=== PATIENT | male | born 1965 | race Caucasian/White ===

== ENCOUNTER 2017-10-14 08:39 | Emergency (ER) | payer OTHER ==
[2017-10-14 08:54] VITALS: BP 136/83; PULSE 98; TEMP 98.6; BMI 36.2
--- NOTE | 2017-10-14 08:59 | PDOC ---
History of Present Illness - General Chief Complaint: Injury Stated Complaint: RT FOOT INJURY Time Seen by Provider: 10/14/17 08:40 History Source: Patient Exam Limitations: No Limitations - History of Present Illness Initial Comments: 10/14/17 08:55 52y/o M h/o lupus, hypercoagulable on coumadin, neuropathy but no known peripheral vascular disease p/w bleeding lesion to his R foot. Pt unclear on when he may have injured his foot 2/2 neuropathy. This morning friend noted some blood on the bathroom floor, so patient checked his foot and noted a blood blister. He has no pain, has not noted any swelling/redness/pus/fever/chills. The bleeding was self resolved, he presents for evaluation. unknown last tetanus. compliant with meds. no other complaints. Past History - Past Medical History Allergies/Adverse Reactions: Allergies Allergy/AdvReac Type Severity Reaction Status Date / Time No Known Allergies Allergy Verified 10/14/17 08:40 Home Medications: Ambulatory Orders Vitamin B Complex 1 each PO DAILY 01/13/14 Warfarin Na [Coumadin -] 2.5 mg PO ASDIR 10/14/17 Anemia: No Asthma: No Cancer: No Cardiac Disorders: No CVA: No COPD: No CHF: No Dementia: No Diabetes: No GI Disorders: Yes (gerd) Disorders: No HTN: Yes Hypercholesterolemia: No Liver Disease: No Seizures: No Thyroid Disease: No Other medical history: PE 1014,DVTS IN LEFT LEG, NEUROPATHY, LUPUS COAG - Surgical History Abdominal Surgery: Yes (hernia repair) Appendectomy: No Cardiac Surgery: No Cholecystectomy: No Lung Surgery: No Neurologic Surgery: No Orthopedic Surgery: Yes (KNEE SURGERY) - Immunization History Immunization Up to Date: (PT THINKS IN LAST 5 YEARS) - Suicide/Smoking/Psychosocial Hx Smoking Status: Yes Smoking History: Former smoker Have you smoked in the past 12 months: No Number of Cigarettes Smoked Daily: 0 If you are a former smoker, when did you quit?: SEVERAL YEARS 20+ Information on smoking cessation initiated: No Hx Alcohol Use: No (1-2 DRINKS ON WEEKEND) Drug/Substance Use Hx: No Substance Use Type: None Hx Substance Use Treatment: No Review of Systems - Review of Systems Constitutional: No: Chills, Fever Cardiac (ROS): No: Edema Musculoskeletal: No: Joint Pain Integumentary: Yes: See HPI. No: Rash Neurological: Yes: See HPI *Physical Exam - Vital Signs Last Vital Signs Temp Pulse Resp BP Pulse Ox 98.6 F 98 H 20 136/83 99 10/14/17 08:39 10/14/17 08:39 10/14/17 08:39 10/14/17 08:39 10/14/17 08:39 - Physical Exam Comments: 10/14/17 09:08 GENERAL: The patient is awake, alert, and fully oriented, in no acute distress. HEAD: Normal with no signs of trauma. EYES: Pupils equal, round and reactive to light, extraocular movements intact. EXTREMITIES: Normal range of motion, no edema. 2+ easily palpable distal pulses. NEUROLOGICAL: Normal speech. Chronically decreased sensation in the toes. PSYCH: Normal mood, normal affect. SKIN: clear except for R foot: 2cm subcutaneous hematoma over the plantar aspect of the foot at the distal 1st metatarsal. There is a small excoriation with dry blood but no active bleeding/discharge/pus. nontender, no visible or palpable foreign body. No swelling/erythema/warmth. No joint effusion. Moderate Sedation - Procedure Monitoring Vital Signs: Vital Signs Temp Pulse Resp BP Pulse Ox 98.6 F 98 H 20 136/83 99 10/14/17 08:39 10/14/17 08:39 10/14/17 08:39 10/14/17 08:39 10/14/17 08:39 ED Treatment Course - RADIOLOGY Radiology Studies Ordered: Category Date Time Status FOOT-RIGHT [RAD] Stat Radiology 10/14/17 08:49 Ordered Medical Decision Making - Medical Decision Making 10/14/17 09:10 52y/o M with neuropathy on coumadin p/w subcutaneous hematoma to R sole that bled briefly this morning. Unknown timeline, no evidence of infection, no active bleeding. local wound care: irrigated with betadine, bacitracin dressing applied will check r foot xray to r/o any foreign body no evidence of infection and the patient is not immunocompromised and has no evidence of or known PVD. Would avoid systemic abx at this time and promote local wound care with bacitracin. update tetanus if needed - checking with PMD office. 10/14/17 09:20 On my prelim review, there is no foreign body or evidence of deep tissue infection or bone injury. bacitracin gauze dressing applied. understands return criteria. *DC/Admit/Observation/Transfer Diagnosis at time of Disposition: Subcutaneous hematoma - Discharge Dispostion Disposition: HOME Condition at time of disposition: Stable - Referrals Referrals: Jcarlos Brown MD [Primary Care Provider] - - Patient Instructions Printed Discharge Instructions: DI for Contusion Additional Instructions: Activity as tolerated. Stay hydrated. Bacitracin dressing change to the wound twice daily until fully healed. Continue your medications as previously prescribed by your physician. You should follow up with your primary doctor as needed regarding today's emergency department visit. Return to the emergency department for any new or concerning symptoms, particularly redness or swelling, pus or pain, fever or chills, persistent bleeding. - Post Discharge Activity
[2017-10-14] MEDS ORDERED: DIPHTH,PERTUSS(ACELL),TET 0.5 ML DISP.SYRIN IM ONE (09:22)
== END 2017-10-14 09:26 | disposition home or self-care (01) ==
LOC: SUPCPDRO 08:39 → FER 08:39
PROC: 3E0234Z Introduction of Serum, Toxoid and Vaccine into Muscle, Percutaneous Approach (ICD-10-PCS; principal; 2017-10-14)
DX: T14.8XXA Other injury of unspecified body region, initial encounter (principal); X58.XXXA Exposure to other specified factors, initial encounter; Y93.9 Activity, unspecified; Y92.9 Unspecified place or not applicable; Z79.01 Long term (current) use of anticoagulants; I73.9 Peripheral vascular disease, unspecified; K21.9 Gastro-esophageal reflux disease without esophagitis; I10 Essential (primary) hypertension; Z86.711 Personal history of pulmonary embolism; Z87.891 Personal history of nicotine dependence
CPT/HCPCS: 73630-TC-RT-FY; 90471; 90715; 99282-25

== ENCOUNTER 2018-01-19 08:34 | Emergency (ER) | payer OTHER ==
[2018-01-19 08:40] VITALS: BP 119/78; PULSE 101; TEMP 98.4; BMI 34.7
--- NOTE | 2018-01-19 09:33 | PDOC ---
History of Present Illness - General Chief Complaint: Wound Stated Complaint: BLEEDING TO SURGICAL SITE Time Seen by Provider: 01/19/18 08:44 - History of Present Illness Initial Comments: 01/19/18 09:47 Chief complaint: Bleeding from surgical site right hip History of present illness: Patient noted small amount of blood on wound dressing this morning. Site of a muscle biopsy right hip 2 weeks ago. No recent swelling or pain. Review of systems: Patient with chronic numbness tingling and weakness of the lower extremities thought to be due to peripheral neuropathy secondary to antiphospholipid syndrome. As noted above, no increased swelling or pain at the biopsy site. No lightheadedness, dizziness, orthostatic symptoms, chest pain, shortness of breath, abdominal pain, nausea, vomiting, diarrhea. Remainder systems reviewed and found to be negative Past medical history: Pulmonary embolus, approximately 2 years ago, maintained on warfarin. Recently transitioned to Lovenox for his biopsy, restarted on warfarin 5 days ago. INR several days ago was 1.9. Antiphospholipid syndrome. Peripheral neuropathy. Social/family history reviewed and noncontributory Physical exam: Alert and oriented well-developed well-nourished no acute distress cheerful and cooperative Afebrile, vital signs normal including orthostatic blood pressure and pulse. HEENT clear Neck supple without bruit mass or nodes Chest clear CV regular without murmur or gallop Abdomen benign Neurological reveals decreased sensation in both lower extremities, symmetric. Pulses are full, however, and feet are warm Extremities: There is a 6 cm incision at the site of a muscle biopsy lateral right hip. There is a small amount of white blood on the dressing. Upon removal of the dressing, there is slight dehiscence of the proximal edge of the wound with an underlying hematoma approximately 3 cm in diameter. There is no fluctuance. There is no bleeding with gentle pressure. Impression: Hematoma, small amount of bleeding, hemodynamically insignificant Plan: Wound was cleaned with normal saline, bacitracin was applied, and a pressure dressing was installed. Bleeding seemed to be controlled. Patient will follow-up with his primary physician or return to the ER if bleeding becomes more severe. Past History - Past Medical History Allergies/Adverse Reactions: Allergies Allergy/AdvReac Type Severity Reaction Status Date / Time No Known Allergies Allergy Verified 01/19/18 08:39 Home Medications: Ambulatory Orders Vitamin B Complex 1 each PO DAILY 01/13/14 Anemia: No Asthma: No Cancer: No Cardiac Disorders: No CVA: No COPD: No CHF: No Dementia: No Diabetes: No GI Disorders: Yes (gerd) Disorders: No HTN: Yes Hypercholesterolemia: No Liver Disease: No Seizures: No Thyroid Disease: No Other medical history: LUPUS - Surgical History Abdominal Surgery: Yes (hernia repair) Appendectomy: No Cardiac Surgery: No Cholecystectomy: No Lung Surgery: No Neurologic Surgery: No Orthopedic Surgery: Yes (KNEE SURGERY) - Immunization History Immunization Up to Date: (PT THINKS IN LAST 5 YEARS) - Suicide/Smoking/Psychosocial Hx Smoking Status: Yes Smoking History: Never smoked Have you smoked in the past 12 months: No Number of Cigarettes Smoked Daily: 0 If you are a former smoker, when did you quit?: SEVERAL YEARS 20+ Hx Alcohol Use: No (1-2 DRINKS ON WEEKEND) Drug/Substance Use Hx: No Substance Use Type: None Hx Substance Use Treatment: No *Physical Exam - Vital Signs Last Vital Signs Temp Pulse Resp BP Pulse Ox 98.4 F 101 H 18 119/78 96 01/19/18 08:36 01/19/18 08:36 01/19/18 08:36 01/19/18 08:36 01/19/18 08:36 *DC/Admit/Observation/Transfer Diagnosis at time of Disposition: Subcutaneous hematoma - Discharge Dispostion Disposition: HOME Condition at time of disposition: Improved Decision to Admit order: No - Referrals - Patient Instructions Printed Discharge Instructions: DI for Hematoma (Bruise) Additional Instructions: Maintain pressure dressing for 48 hours. Return to ER if there is persistent bleeding. Otherwise follow-up with primary physician Dr. Brown as discussed. - Post Discharge Activity
== END 2018-01-19 09:41 | disposition home or self-care (01) ==
LOC: FER 08:34
DX: L76.32 Postprocedural hematoma of skin and subcutaneous tissue following other procedure (principal); I10 Essential (primary) hypertension; M32.9 Systemic lupus erythematosus, unspecified; K21.9 Gastro-esophageal reflux disease without esophagitis
CPT/HCPCS: 99282-25

== ENCOUNTER 2018-05-27 16:45 | Inpatient (IN) | payer OTHER ==
--- NOTE | 2018-05-27 17:02 | PDOC ---
Rapid Medical Evaluation Time Seen by Provider: 05/27/18 17:00 Medical Evaluation: Allergies Allergy/AdvReac Type Severity Reaction Status Date / Time No Known Allergies Allergy Verified 01/19/18 08:39 05/27/18 17:01 I have performed a brief in-person evaluation of this patient. The patient presents with a chief complaint of: progressive numbness to ble and bue Pertinent physical exam findings:decreased sensation to b/l hands and lower extremities I have ordered the following: labs The patient will proceed to the ED for further evaluation. Discharge Disposition - Diagnosis Numbness and tingling - Referrals - Patient Instructions - Post Discharge Activity
[2018-05-27] MEDS ORDERED: SODIUM CHLORIDE 1,000 ML IV STA (17:03)
[2018-05-27 17:05] VITALS: BMI 34.7
[2018-05-27 17:51] LABS: BASO % 1.1 % (0-2.0); EOS % 0.8 % (0-4.5); HEMATOCRIT 39.5 % (35.4-49); HEMOGLOBIN 13.8 GM/dL (11.7-16.9); LYMPH % 24.8 % (8-40); MCH 34.6 pg (25.7-33.7); MCHC 34.8 g/dl (32.0-35.9); MEAN CELL VOLUME 99.4 fl (80-96); MEAN PLT VOLUME 10.6 fl (7.5-11.1); MONO % 13.1 % (3.8-10.2); NEUT % 60.2 % (42.8-82.8); PLATELET COUNT 176 K/MM3 (134-434); RBC 3.98 M/mm3 (4.00-5.60); RDW 13.6 % (11.9-15.9); WHITE BLOOD COUNT 6.6 K/mm3 (4.0-10.0)
[2018-05-27 18:10] LABS: ALBUMIN 3.4 g/dl (3.4-5.0); ALK PHOS 77 U/L (45-117); ANION GAP 12 MMOL/L (8-16); BILIRUBIN,TOTAL 0.8 mg/dL (0.2-1); BLOOD UREA NITROGEN 23 mg/dL (7-18); CHLORIDE 96 mmol/L (98-107); CO2 28 mmol/L (21-32); GLUCOSE,RANDOM 92 mg/dL (74-106); SGOT/AST 33 U/L (15-37); SGPT/ALT 19 U/L (13-61); SODIUM 136 mmol/L (136-145); TOT PROT 6.2 g/dl (6.4-8.2)
--- NOTE | 2018-05-27 18:54 | CON.NEURO ---
Consult - History of Present Illness History of Present Illness: 53 M c/o b/l feet numbness x 4 yrs, posterior aspect right below knees. + Difficulty walking bc cannot feel his feet. +weakness. Denies back pain, BB incontinence Denies hx DM Hx Raynaulds ; fingers may tingle, and goes white when exposed to cold then bright red when warmed up +hx Lupus anti-coagulant, dx 2014; hx PE, on coumadin 5mg QD blood work (-) -s/p biopsy and LP -- no clear dx on pathology beyond axonal and demyelinating neuropathy -now unable towalk x 4-5 months , unable to control legs , weaker than prior Numbness worsen extended up to low back, feels hands getting numb as well difficulty feeling floor. No falls. Saw RHEUM, w/u P. Vit B12 supplements (B12 low on bloodwork). hx of LA+2012, repeat recent (-) low B12, Low vit D; lyme ssa, ssba , esr (-) to review , spoke to RHEUM /DR Miller (-) NICOLE essentially and told lupus AC may covert (-), no signs of lupus as of now PRIOR Results: Results: SPEP, , C ANCA , P ANCA , MAG, HU , ESR (-), SSA /SSB (-) AST elevated Labs: LP -NL protein BIOPSY SURAL- axonal and demyleinating neuropathy, no inflammation seen, muscle BIOPSY (-) EM04/13/18 severe large fiber neuropathy -subacute to chronic moderate severity chronic neuropathy, sensorimotor with axonal features; - Past Medical History Cardio/Vascular: Yes: HTN - Past Surgical History Past Surgical History: Yes: Vein Stripping/Ligation - Alcohol/Substance Use Hx Alcohol Use: No - Smoking History Smoking history: Former smoker Have you smoked in the past 12 months: No Aproximately how many cigarettes per day: 0 If you are a former smoker, when did you quit?: SEVERAL YEARS 20+ - Social History Usual Living Arrangement: Other (roomate) ADL: Independent Home Medications - Allergies Allergies/Adverse Reactions: Allergies Allergy/AdvReac Type Severity Reaction Status Date / Time No Known Allergies Allergy Verified 01/19/18 08:39 - Home Medications Home Medications: Ambulatory Orders Vitamin B Complex 1 each PO DAILY 01/13/14 Family Disease History - Family Disease History Family Disease History: Other: Mother (dvts in the past), Sister (lupus anticoagulant) Physical Exam-Neuro Vital Signs: Vital Signs Temperature 97.9 F 05/27/18 17:01 Pulse Rate 109 H 05/27/18 17:01 Respiratory Rate 17 05/27/18 17:01 Blood Pressure 98/62 05/27/18 17:01 O2 Sat by Pulse Oximetry (%) 100 05/27/18 17:01 Labs: CBC, BMP 05/27/18 17:34 05/27/18 17:34 - Neuro Exam Level Of Consciousness: Yes: Alert (Mental Status: Mood is appropriate. Immediate recall is intact. Short term memory is intact. 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 There is no evidence of expressive or receptive aphasia. 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 - INFLAMMATORY POLYNEUROPATHY, UNSPECIFIED (2) Abnormal gait Code(s): R26.9 - UNSPECIFIED ABNORMALITIES OF GAIT AND MOBILITY (3) Sensory ganglionopathy Code(s): G54.9 - NERVE ROOT AND PLEXUS DISORDER, UNSPECIFIED Assessment/Plan G61.9..........INFLAMMATORY POLYNEUROPATHY, UNSPECIFIED R20.2..........PARESTHESIA OF SKIN Plan: Inflammatory Polyneuropathy, Unspecified: ?Vasculitis mediated neuropathy, ie immune mediated neuropathy vs idiopathic vs ganglionopathy--+ profound LE sensory ataxia appears distal dependent and axonal /demyelinating less likely CIDP with NL CSFprotein Vasculitis labs re (-) thus far LP -NL protein, no clear inflam infiltrate reviewed nerve and muscle biopsy 01/10 no evidence of an inflam myopathy--based on biopsy MRI LSPINE-no sig pathology SJGROEN , paraneoplastic RIVERA ( anti-Hu, anti-Yo, anti-Ri, Anti-CV2, Anti- Ma2, (- ) CT CHEST ABD PELVIS (-) paraneoplastic RIVERA (-) given profound sensory ataxia would give trial of IVIG , for progressive idiopathic ganglionopathy then may consider immunomodulator perhaps methotrexate IVIG 2gm/kg over 5 days total dose (.4gm/kg daily dose) , check IGA level, ESR, YAJAIRA, RF, JER , B12 DR BEST
--- NOTE | 2018-05-27 19:08 | PDOC ---
History of Present Illness - General History Source: Patient Exam Limitations: No Limitations - History of Present Illness Initial Comments: 05/27/18 19:24 The patient is a 53 year old male with a signficant past medical history of PE on coumadin and Lupus diagnosed in 2014 presenting with bilateral feet numbness , weakness, and difficulty walking. Patient denies recent falls. Patient was seen by Dr. Abbott, neurologist, today who recommended the patient come to the ER for a trial of IVIG for progressive idiopathic ganglionopathy. Allergies: NKDA Surgeries: None reported Social history: No reported alcohol, drug or cigarette use. PCP: Dr. Brown <Cally Elizabeth - Last Filed: 05/27/18 19:25> <Katina Villatoro - Last Filed: 05/27/18 20:51> - General Chief Complaint: Pain, Acute Stated Complaint: PCP SENT/TREATMENT Time Seen by Provider: 05/27/18 17:00 Past History <Cally Elizabeth - Last Filed: 05/27/18 19:25> - Past Medical History Anemia: No Asthma: No Cancer: No Cardiac Disorders: No CVA: No COPD: No CHF: No Dementia: No Diabetes: No GI Disorders: Yes (gerd) Disorders: No HTN: Yes Hypercholesterolemia: No Liver Disease: No Seizures: No Thyroid Disease: No - Surgical History Abdominal Surgery: Yes (hernia repair) Appendectomy: No Cardiac Surgery: No Cholecystectomy: No Lung Surgery: No Neurologic Surgery: No Orthopedic Surgery: Yes (KNEE SURGERY) - Immunization History Immunization Up to Date: Yes (PT THINKS IN LAST 5 YEARS) - Suicide/Smoking/Psychosocial Hx Smoking Status: Yes Smoking History: Former smoker Have you smoked in the past 12 months: No Number of Cigarettes Smoked Daily: 0 If you are a former smoker, when did you quit?: SEVERAL YEARS 20+ Information on smoking cessation initiated: No Hx Alcohol Use: No Drug/Substance Use Hx: No Substance Use Type: None Hx Substance Use Treatment: No <Katina Villatoro - Last Filed: 05/27/18 20:51> - Past Medical History Allergies/Adverse Reactions: Allergies Allergy/AdvReac Type Severity Reaction Status Date / Time No Known Allergies Allergy Verified 01/19/18 08:39 Home Medications: Ambulatory Orders Vitamin B Complex 1 each PO DAILY 08/21/14 Review of Systems - Review of Systems Able to Perform ROS?: Yes Comments:: 05/27/18 19:32 ADULT ROS GENERAL/CONSTITUTIONAL: No fever or chills. No weakness. HEAD, EYES, EARS, NOSE AND THROAT: No change in vision. No ear pain or discharge. No sore throat. GASTROINTESTINAL: No nausea, vomiting, diarrhea or constipation. GENITOURINARY: No dysuria, frequency, or change in urination. CARDIOVASCULAR: No chest pain or shortness of breath. RESPIRATORY: No cough, wheezing, or hemoptysis. MUSCULOSKELETAL: No joint or muscle swelling or pain. No neck or back pain. SKIN: No rash NEUROLOGIC: No headache, vertigo, loss of consciousness. (+) Weakness. (+) Bilateral lower extremities numbness. ENDOCRINE: No increased thirst. No abnormal weight change. HEMATOLOGIC/LYMPHATIC: No anemia, easy bleeding, or history of blood clots. ALLERGIC/IMMUNOLOGIC: No hives or skin allergy. <Cally Elizabeth - Last Filed: 05/27/18 19:25> *Physical Exam - Vital Signs Last Vital Signs Temp Pulse Resp BP Pulse Ox 97.9 F 109 H 17 98/62 100 05/27/18 17:01 05/27/18 17:01 05/27/18 17:01 05/27/18 17:01 05/27/18 17:01 - Physical Exam Comments: 05/27/18 19:33 ADULT PHYSICAL EXAM Constitutional: Awake, alert, oriented. No acute distress. Head: Normocephalic. Atraumatic Eyes: PERRL. EOMI. Conjunctivae are not pale. ENT: Mucous membranes are moist and intact. Posterior pharynx without exudates or erythema. Uvula midline. Neck: Supple. Full ROM. No lymphadenopathy. Cardiovascular: Regular rate. Regular rhythm. S1, S2 regular. Distal pulses are 2+ and symmetric. Pulmonary/Chest: No evidence of respiratory distress. Clear to auscultation bilaterally No wheezing, rales or rhonchi. Abdominal: Soft and non-distended. There is no tenderness. No rebound, guarding or rigidity. No organomegaly. No palpable masses. Good bowel sounds. Back: No CVA tenderness. Musculoskeletal: No edema. No cyanosis. No clubbing. Full range of motion in all extremities. Nocalf tenderness. Radial/pedal pulses are intact and 2+ bilaterally. (+) Muscle wasting of the lower and upper extremities. Skin: Skin is warm and dry. No petechiae. No purpura. Neurological: Alert and oriented to person, place, and time. Cranial nerves II -XII are grossly intact. Normal speech. Strength is grossly symmetric. No sensory deficits. Psychiatric: Good eye contact. Normal interaction, affect and behavior. <Cally Elizabeth - Last Filed: 05/27/18 19:25> - Vital Signs Last Vital Signs Temp Pulse Resp BP Pulse Ox 97.9 F 109 H 17 98/62 100 05/27/18 17:01 05/27/18 17:01 05/27/18 17:01 05/27/18 17:01 05/27/18 17:01 <Katina Villatoro - Last Filed: 05/27/18 20:51> Moderate Sedation - Procedure Monitoring Vital Signs: Procedure Monitoring Vital Signs Temperature 97.9 F 05/27/18 17:01 Pulse Rate 109 H 05/27/18 17:01 Respiratory Rate 17 05/27/18 17:01 Blood Pressure 98/62 05/27/18 17:01 O2 Sat by Pulse Oximetry (%) 100 05/27/18 17:01 <Cally Elizabeth - Last Filed: 05/27/18 19:25> - Procedure Monitoring Vital Signs: Procedure Monitoring Vital Signs Temperature 97.9 F 05/27/18 17:01 Pulse Rate 109 H 05/27/18 17:01 Respiratory Rate 17 05/27/18 17:01 Blood Pressure 98/62 05/27/18 17:01 O2 Sat by Pulse Oximetry (%) 100 05/27/18 17:01 <Katina Villatoro - Last Filed: 05/27/18 20:51> Heart Score/ECG Review - ECG Intrepretation Comment:: 05/27/18 20:51 sinus tach at 106, RBBB, no acute st/t wave findings <Katina Villatoro - Last Filed: 05/27/18 20:51> ED Treatment Course - LABORATORY CBC & Chemistry Diagram: 05/27/18 17:34 05/27/18 17:34 - ADDITIONAL ORDERS Additional order review: Laboratory Results 05/27/18 17:34 Sodium 136 Potassium 4.0 Chloride 96 L Carbon Dioxide 28 Anion Gap 12 BUN 23 H Creatinine 1.0 Creat Clearance w eGFR > 60 Random Glucose 92 Calcium 9.0 Total Bilirubin 0.8 AST 33 ALT 19 Alkaline Phosphatase 77 Total Protein 6.2 L Albumin 3.4 05/27/18 17:34 RBC 3.98 L MCV 99.4 H MCHC 34.8 RDW 13.6 D MPV 10.6 D Neutrophils % 60.2 Lymphocytes % 24.8 Monocytes % 13.1 H Eosinophils % 0.8 Basophils % 1.1 <Cally Elizabeth - Last Filed: 05/27/18 19:25> - LABORATORY CBC & Chemistry Diagram: 05/27/18 17:34 05/27/18 17:34 - ADDITIONAL ORDERS Additional order review: Laboratory Results 05/27/18 17:34 Sodium 136 Potassium 4.0 Chloride 96 L Carbon Dioxide 28 Anion Gap 12 BUN 23 H Creatinine 1.0 Creat Clearance w eGFR > 60 Random Glucose 92 Calcium 9.0 Total Bilirubin 0.8 AST 33 ALT 19 Alkaline Phosphatase 77 Total Protein 6.2 L Albumin 3.4 05/27/18 17:34 RBC 3.98 L MCV 99.4 H MCHC 34.8 RDW 13.6 D MPV 10.6 D Neutrophils % 60.2 Lymphocytes % 24.8 Monocytes % 13.1 H Eosinophils % 0.8 Basophils % 1.1 <Katina Villatoro - Last Filed: 05/27/18 20:51> Medical Decision Making - Medical Decision Making 05/27/18 20:47 a/p: 53yo male sent in by Dr. Abbott for admission for IVIG -hx of lupus -progressive neuropathy -no phillips -no cp -labs ordered from triage were reviewed and reviewed with the patient -will order neuro labs -will admit to [facility] - covers Dr. Brown 05/27/18 20:49 dx progressive idiopathic ganglianopathy case idscussed with Dr. Young from [facility] who accepts the patient under Dr. Altamirano <Katina Villatoro - Last Filed: 05/27/18 20:51> *DC/Admit/Observation/Transfer <Cally Elizabeth - Last Filed: 05/27/18 19:25> - Discharge Dispostion Decision to Admit order: Yes - Attestations Physician Attestion: 05/27/18 20:51 I, Dr. Katina Villatoro, DO, attest that this document has been prepared under my direction and personally reviewed by me in its entirety. I further attest, that it accurately reflects all work, treatment, procedures and medical decision -making performed by me. <Katina Villatoro - Last Filed: 05/27/18 20:51> Diagnosis at time of Disposition: Numbness and tingling, Progressive neurological disorder - Discharge Dispostion Condition at time of disposition: Fair - Referrals Referrals: Jcarlos Brown MD [Primary Care Provider] - - Patient Instructions - Post Discharge Activity
--- NOTE | 2018-05-27 19:40 | PN ---
Teaching Attending Note Name of Resident: Luis Jay ATTENDING PHYSICIAN STATEMENT I saw and evaluated the patient. I reviewed the resident's note and discussed the case with the resident. I agree with the resident's findings and plan as documented. SUBJECTIVE: Patient is a 53 year old man with a PMH of PE on coumadin and Lupus diagnosed in 2014 presenting with bilateral feet numbness, weakness, and difficulty walking. Patient denies recent falls. Patient was seen by Dr. Abbott, neurologist, today who recommended the patient come to the ER for a trial of IVIG for progressive idiopathic ganglionopathy. OBJECTIVE: Alert Vital Signs Period Temp Pulse Resp BP Sys/Chau Pulse Ox Last 24 Hr 97.9 F 109 17 98/62 100 HEENT: No Jaundice, eye redness or discharge, PERRLA, EOMI. Normocephalic, atraumatic. External ears are normal and hearing is grossly intact. No nasal discharge. Neck: Supple, nontender. No palpable adenopathy or thyromegaly. No JVD Chest: Good effort. Clear to auscultation and percussion. Heart: Regular. No S3, rub or murmur Abdomen: Not distended, soft, nontender and no HSM. No rebound or guarding. Normoactive bowel sounds. Ext: Peripheral pulses intact. No leg edema. Skin: Warm and dry. No petechiae, rash or ecchymosis. Neuro: Alert. Oriented x3. CN 2-12 grossly intact. Wheelchair use. Diminished sensation in lower extremities and DTR are symmetric. Home Medications Medication Instructions Recorded Vitamin B Complex 1 each PO DAILY 01/13/14 Abnormal Lab Results 05/27/18 05/27/18 17:34 17:34 RBC 3.98 L MCV 99.4 H MCH 34.6 H D Monocytes % 13.1 H Chloride 96 L BUN 23 H Total Protein 6.2 L ASSESSMENT AND PLAN: 1. Progressive idiopathic ganglionopathy - Patient getting IVIG under the guidance of the neurologist. Will hold his usual antihypertensive drugs in view of low BP. Got IV NS in the ER and will continue IV NS. 2. Obesity - Will provide patient all the necessary assistance, counseling and positive reinforcement to facilitate weight loss. Consult garment tag stringer. 3. DVT prophylaxis - On coumadin for PE. Monitor INR. 4. Advance directives - Full code
--- NOTE | 2018-05-27 20:05 | HP ---
CHIEF COMPLAINT: PCP: Dr. 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 Patient denies recent falls. Patient was seen by Dr. Abbott, neurologist, today who recommended the patient come to the ER for a trial of IVIG for progressive idiopathic ganglionopathy. Pt has been having sxs of b/l feet numbness x 4 yrs, but has been worsening over the past 4-5 mo. began w/ posterior aspect right below knees, now up to waist/lower back and in hands, unable to walk or control legs. Has been extensivrly w/u by rheum and neuro. Deneis fever , chills, cp, sob, abd pain, back pain, n/v/d, urinary sxs, incontinence ER course was notable for: (1) CXR, 1L NS (2) (3) Recent Travel: PAST MEDICAL HISTORY: echo 01/10 nl EF 60-65% RHEUM /DR Paul Abbott EM04/13/18 severe large fiber neuropathy -subacute to chronic moderate severity chronic neuropathy, sensorimotor with axonal features; LP -NL protein BIOPSY SURAL- axonal and demyleinating neuropathy, no inflammation seen, muscle BIOPSY (-) PAST SURGICAL HISTORY: R eye cataract surgery Vein Stripping/Ligation Social History: Smoking: quit 25 yr ago Alcohol: heavy but quit 1 yr ago Drugs: denies Family History: Mother (dvts in the past), Sister (lupus anticoagulant) Allergies No Known Allergies Allergy (Verified 01/19/18 08:39) HOME MEDICATIONS: coumadin 5mg ///, 2.5mg T// Home Medications Medication Instructions Recorded Vitamin B Complex 1 each PO DAILY 01/13/14 REVIEW OF SYSTEMS as per HPI PHYSICAL EXAMINATION Vital Signs - 24 hr 05/27/18 17:01 Temperature 97.9 F Pulse Rate 109 H Respiratory 17 Rate Blood Pressure 98/62 O2 Sat by Pulse 100 Oximetry (%) GENERAL: AOX3 NAD HEAD: NCAT EYES: Pupils equal, round and reactive to light, extraocular movements intact, sclera anicteric, conjunctiva clear. droopy R eye lid EARS, NOSE, THROAT: Ears normal, nares patent, oropharynx clear without exudates. Moist mucous membranes. NECK: Normal range of motion, supple without lymphadenopathy, JVD, or masses. LUNGS: CTAB HEART: RRR, normal S1 and S2 without murmur, rub or gallop. ABDOMEN: Soft, nontender, not distended, normoactive bowel sounds, no guarding, no rebound, no masses. MUSCULOSKELETAL: Normal range of motion at all joints. No bony deformities or tenderness. UPPER EXTREMITIES: 2+ pulses, warm, well-perfused. No cyanosis. No clubbing. No peripheral edema. LOWER EXTREMITIES: 2+ pulses, warm, well-perfused. No calf tenderness. No peripheral edema. NEUROLOGICAL: Cranial nerves II-XII intact. Normal speech. Diminished sensation in lower extremities b/l up to hips, as well as hands b/l up to wrists PSYCHIATRIC: Cooperative. Good eye contact. Appropriate mood and affect. SKIN: Warm, dry, normal turgor, no rashes or lesions noted, normal capillary refill. 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 Progressive idiopathic ganglionopathy - Patient getting IVIG under the guidance of the neurologist. Will hold his usual antihypertensive drugs in view of low BP. s/p 1L NS NS in the ER 100cc NS x 1 bag IVIG 2gm/kg over 5 days total dose (.4gm/kg daily dose) for progressive idiopathic ganglionopathy. then may consider immunomodulator perhaps methotrexate check IGA level, ESR, YAJAIRA, RF, JER , B12 HTN - low BP 98/67 hold home BP med lisinopril/HCTZ 20-12.5 DVT prophylaxis - On coumadin for PE. Monitor INR. coumadin 5mg ///, 2.5mg T// Full code Dispo med/surg Visit type - Emergency Visit Emergency Visit: Yes ED Registration Date: 05/27/18 Care time: The patient presented to the Emergency Department on the above date and was hospitalized for further evaluation of their emergent condition. - New Patient This patient is new to me today: Yes Date on this admission: 05/28/18 - Critical Care Critical Care patient: No
[2018-05-27 21:16] LABS: INR 1.34 (0.83-1.09); PROTHROMBIN TIME (PATIENT) 15.9 SEC (9.7-13.0)
[2018-05-27 21:19] LABS: ACTIVATED PTT 37.7 SECONDS (25.2-36.5)
[2018-05-27] MEDS ORDERED: IMMUNE GLOBULIN IVPB ONE (21:30)
[2018-05-27] MEDS ORDERED: WARFARIN NA 5 MG TABLET (UD) PO SCH (21:30)
[2018-05-27] MEDS ORDERED: SODIUM CHLORIDE 1,000 ML IV SCH (22:30)
[2018-05-27] MEDS ORDERED: WARFARIN NA 5 MG TABLET (UD) ONE (22:53)
[2018-05-28 06:25] LABS: EOS % 0.8 % (0-4.5); HEMATOCRIT 37.5 % (35.4-49); HEMOGLOBIN 12.2 GM/dL (11.7-16.9); LYMPH % 24.8 % (8-40); MCH 32.7 pg (25.7-33.7); MCHC 32.7 g/dl (32.0-35.9); MEAN PLT VOLUME 10.7 fl (7.5-11.1); MONO % 13.7 % (3.8-10.2); NEUT % 59.7 % (42.8-82.8); PLATELET COUNT 116 K/MM3 (134-434); RBC 3.75 M/mm3 (4.00-5.60); RDW 13.7 % (11.9-15.9); WHITE BLOOD COUNT 4.8 K/mm3 (4.0-10.0)
[2018-05-28 06:39] LABS: INR 1.33 (0.83-1.09); PROTHROMBIN TIME (PATIENT) 15.7 SEC (9.7-13.0)
[2018-05-28 06:41] LABS: ACTIVATED PTT 31.8 SECONDS (25.2-36.5)
[2018-05-28 07:04] LABS: ALK PHOS 66 U/L (45-117); ANION GAP 9 MMOL/L (8-16); BILIRUBIN,TOTAL 1.1 mg/dL (0.2-1); BLOOD UREA NITROGEN 23 mg/dL (7-18); CALCIUM 8.2 mg/dL (8.5-10.1); CHLORIDE 99 mmol/L (98-107); CO2 27 mmol/L (21-32); CREATININE 0.8 mg/dL (0.55-1.3); GLUCOSE,RANDOM 78 mg/dL (74-106); MAGNESIUM 1.5 mg/dL (1.8-2.4); PHOSPHOROUS 3.5 mg/dL (2.5-4.9); SGOT/AST 30 U/L (15-37); SGPT/ALT 16 U/L (13-61); SODIUM 135 mmol/L (136-145); TOT PROT 6.2 g/dl (6.4-8.2)
[2018-05-28] MEDS: VITAMIN B COMPLEX W/C COMBO TABLET (FP) PO SCH (10:00)
--- NOTE | 2018-05-28 11:14 | PN ---
Physical Exam: SUBJECTIVE: Patient seen and examined at bedside. No acute events overnight. OBJECTIVE: Vital Signs Temperature 97.7 F 05/28/18 10:00 Pulse Rate 95 H 05/28/18 10:00 Respiratory Rate 18 05/28/18 10:00 Blood Pressure 100/67 05/28/18 10:00 O2 Sat by Pulse Oximetry (%) 98 05/28/18 05:00 GENERAL: AOX3 NAD HEAD: AT/NC. NOLAN. EOMI. Dry mucus membranes. NECK: Normal ROM, supple, no LAD/JVD. LUNGS: CTA B/L. No wheezes noted. Symmetric chest rise. HEART: RRR, normal S1 and S2 without murmur, rub or gallop. ABDOMEN: Soft, NT/ND. +BS in all 4Q's. MUSCULOSKELETAL: Normal range of motion at all joints. No bony deformities or tenderness. UPPER EXTREMITIES: 2+ pulses, warm, well-perfused. No cyanosis. No clubbing. No peripheral edema. 5/5 muscle strength b/l. LOWER EXTREMITIES: 2+ pulses, warm, well-perfused. No calf tenderness. No peripheral edema. 4/5 R hip flexion. 5/5 muscle strength knee extension/flexion , plantarflexion/dorsiflexion. NEUROLOGICAL: Cranial nerves II-XII intact. Normal speech. Diminished sensation in lower extremities b/l up to hips, as well as hands b/l up to wrists. PSYCHIATRIC: Cooperative. Good eye contact. Appropriate mood and affect. SKIN: Warm, dry, normal turgor, no rashes or lesions noted, normal capillary refill. CBCD WBC 4.8 K/mm3 (4.0-10.0) 05/28/18 06:00 RBC 3.75 M/mm3 (4.00-5.60) L 05/28/18 06:00 Hgb 12.2 GM/dL (11.7-16.9) 05/28/18 06:00 Hct 37.5 % (35.4-49) 05/28/18 06:00 MCV 100.0 fl (80-96) H 05/28/18 06:00 MCHC 32.7 g/dl (32.0-35.9) 05/28/18 06:00 RDW 13.7 % (11.9-15.9) 05/28/18 06:00 Plt Count 116 K/MM3 (134-434) L D 05/28/18 06:00 MPV 10.7 fl (7.5-11.1) 05/28/18 06:00 CMP Sodium 135 mmol/L (136-145) L 05/28/18 06:00 Potassium 4.0 mmol/L (3.5-5.1) 05/28/18 06:00 Chloride 99 mmol/L (98-107) 05/28/18 06:00 Carbon Dioxide 27 mmol/L (21-32) 05/28/18 06:00 Anion Gap 9 MMOL/L (8-16) 05/28/18 06:00 BUN 23 mg/dL (7-18) H 05/28/18 06:00 Creatinine 0.8 mg/dL (0.55-1.3) 05/28/18 06:00 Creat Clearance w eGFR > 60 (>60) 05/28/18 06:00 Calcium 8.2 mg/dL (8.5-10.1) L 05/28/18 06:00 Total Bilirubin 1.1 mg/dL (0.2-1) H 05/28/18 06:00 AST 30 U/L (15-37) 05/28/18 06:00 ALT 16 U/L (13-61) 05/28/18 06:00 Alkaline Phosphatase 66 U/L (45-117) 05/28/18 06:00 Total Protein 6.2 g/dl (6.4-8.2) L 05/28/18 06:00 Albumin 3.0 g/dl (3.4-5.0) L 05/28/18 06:00 Active Medications Multivitamins (Total B With C -) 1 each PO DAILY [facility] Warfarin Sodium (Coumadin -) 5 mg PO MoWeFrSa@1800 [facility] Last Admin: 05/27/18 22:55 Dose: 5 mg Warfarin Sodium (Coumadin -) 2.5 mg PO SuTuTh@1800 [facility] ASSESSMENT/PLAN: 53 yo M w/ PMH of 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 #Progressive idiopathic ganglionopathy - Patient getting IVIG under the guidance of the neurologist. -Will hold his usual antihypertensive drugs in view of low BP. -Per neuro, IVIG 2gm/kg over 5 days total dose (.4gm/kg daily dose) for progressive idiopathic ganglionopathy. F/u neuro recs. -check IGA level, ESR, YAJAIRA, RF, JER , B12 -Vit B12 620 -TSH/Free T4 pending -Lipid profile -Folic acid 1 mg PO QD -Vitamin B Complex -PT consult #HTN - low BP 100/67. -hold home BP med: Lisinopril/HCTZ 20-12.5 #Hx of PE; INR 1.33 today. Cont to monitor INR. Cont home med: -Coumadin 5 mg M/W/F/Sa, 2.5 mg T/Th/S #Prophylaxis DVT- Coumadin 5mg M/W/F/Sa, 2.5mg T/TH/S for PE. #FEN -no IVf -recheck lytes in AM -sodium-controlled diet #Dispo -cont to monitor on med/surg -full code Visit type - Emergency Visit Emergency Visit: Yes ED Registration Date: 05/27/18 Care time: The patient presented to the Emergency Department on the above date and was hospitalized for further evaluation of their emergent condition. - New Patient This patient is new to me today: Yes Date on this admission: 05/28/18 - Critical Care Critical Care patient: No
[2018-05-28] MEDS: FOLIC ACID 1 MG TABLET (FP) PO SCH (14:12)
--- NOTE | 2018-05-28 16:19 | EKG ---
Test Reason : Blood Pressure : / mmHG Vent. Rate : 106 BPM Atrial Rate : 106 BPM P-R Int : 194 ms QRS Dur : 156 ms QT Int : 414 ms P-R-T Axes : 039 058 -07 degrees QTc Int : 549 ms SINUS TACHYCARDIA RIGHT BUNDLE BRANCH BLOCK T WAVE ABNORMALITY, CONSIDER INFEROLATERAL ISCHEMIA ABNORMAL ECG NO PREVIOUS ECGS AVAILABLE Confirmed by ANITA SLOAN MD ([id number]) on 05/28/2018 4:19:22 PM Referred By: Confirmed By:ANITA SLOAN MD
--- NOTE | 2018-05-28 17:03 | PN ---
Progress Note (short form) - Note Progress Note: 53 M c/o b/l feet numbness x 4 yrs, posterior aspect right below knees. + Difficulty walking bc cannot feel his feet. +weakness. Denies back pain, BB incontinence Denies hx DM Hx Raynaulds ; fingers may tingle, and goes white when exposed to cold then bright red when warmed up +hx Lupus anti-coagulant, dx 2014; hx PE, on coumadin 5mg QD blood work (-) -s/p biopsy and LP -- no clear dx on pathology beyond axonal and demyelinating neuropathy -now unable towalk x 4-5 months , unable to control legs , weaker than prior Numbness worsen extended up to low back, feels hands getting numb as well difficulty feeling floor. No falls. Saw RHEUM, w/u P. Vit B12 supplements (B12 low on bloodwork). hx of LA+2012, repeat recent (-) low B12, Low vit D; lyme ssa, ssba , esr (-) to review , spoke to [facility]HE[facility] /DR Miller (-) NICOLE essentially and told lupus AC may covert (-), no signs of lupus as of now FU : s/p day #1 IVIG no new issues tolerated OK PRIOR Results: Results: SPEP, , C ANCA , P ANCA , MAG, HU , ESR (-), SSA /SSB (-) AST elevated Labs: LP -NL protein BIOPSY SURAL- axonal and demyleinating neuropathy, no inflammation seen, muscle BIOPSY (-) EM04/13/18 severe large fiber neuropathy -subacute to chronic moderate severity chronic neuropathy, sensorimotor with axonal features; - Past Medical History Cardio/Vascular: Yes: HTN - Past Surgical History Past Surgical History: Yes: Vein Stripping/Ligation - Alcohol/Substance Use Hx Alcohol Use: No - Smoking History Smoking history: Former smoker Have you smoked in the past 12 months: No Aproximately how many cigarettes per day: 0 If you are a former smoker, when did you quit?: SEVERAL YEARS 20+ - Social History Usual Living Arrangement: Other (roomate) ADL: Independent Home Medications - Allergies Allergies/Adverse Reactions: Allergies Allergy/AdvReac Type Severity Reaction Status Date / Time No Known Allergies Allergy Verified 01/19/18 08:39 - Home Medications Home Medications: Ambulatory Orders Vitamin B Complex 1 each PO DAILY 01/13/14 Family Disease History - Family Disease History Family Disease History: Other: Mother (dvts in the past), Sister (lupus anticoagulant) Physical Exam-Neuro Vital Signs: Vital Signs Temperature 97.8 F 05/28/18 15:27 Pulse Rate 96 H 05/28/18 15:27 Respiratory Rate 20 05/28/18 15:27 Blood Pressure 110/68 05/28/18 15:27 O2 Sat by Pulse Oximetry (%) 97 05/28/18 14:51 Labs: CBC, BMP 05/27/18 17:34 05/27/18 17:34 - Neuro Exam Level Of Consciousness: Yes: Alert (Mental Status: Mood is appropriate. Immediate recall is intact. Short term memory is intact. 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 There is no evidence of expressive or receptive aphasia. 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 - INFLAMMATORY POLYNEUROPATHY, UNSPECIFIED (2) Abnormal gait Code(s): R26.9 - UNSPECIFIED ABNORMALITIES OF GAIT AND MOBILITY (3) Sensory ganglionopathy Code(s): G54.9 - NERVE ROOT AND PLEXUS DISORDER, UNSPECIFIED Assessment/Plan G61.9..........INFLAMMATORY POLYNEUROPATHY, UNSPECIFIED R20.2..........PARESTHESIA OF SKIN Plan: Inflammatory Polyneuropathy, Unspecified: ?Vasculitis mediated neuropathy, ie immune mediated neuropathy vs idiopathic vs ganglionopathy--+ profound LE sensory ataxia appears distal dependent and axonal /demyelinating less likely CIDP with NL CSFprotein Vasculitis labs re (-) thus far LP -NL protein, no clear inflam infiltrate reviewed nerve and muscle biopsy 01/10 no evidence of an inflam myopathy--based on biopsy MRI LSPINE-no sig pathology SJGROEN , paraneoplastic RIVERA ( anti-Hu, anti-Yo, anti-Ri, Anti-CV2, Anti- Ma2, (- ) CT CHEST ABD PELVIS (-) paraneoplastic RIVERA (-) given profound sensory ataxia would give trial of IVIG , for progressive idiopathic ganglionopathy then may consider immunomodulator perhaps methotrexate IVIG 2gm/kg over 5 days total dose (.4gm/kg daily dose) , day 1/5 hep SQ, rehab DR BEST Problem List - Problems (1) Inflammatory neuropathy Code(s): G61.9 - INFLAMMATORY POLYNEUROPATHY, UNSPECIFIED (2) Abnormal gait Code(s): R26.9 - UNSPECIFIED ABNORMALITIES OF GAIT AND MOBILITY (3) Sensory ganglionopathy Code(s): G54.9 - NERVE ROOT AND PLEXUS DISORDER, UNSPECIFIED
[2018-05-28] MEDS: IMMUNE GLOBULIN IVPB ONE ×2 (17:41→20:40)
[2018-05-28] MEDS ORDERED: WARFARIN NA 2.5 MG TABLET (FP) PO SCH (18:00)
--- NOTE | 2018-05-28 19:42 | PN ---
Teaching Attending Note Name of Resident: Fely Nicole ATTENDING PHYSICIAN STATEMENT I saw and evaluated the patient. I reviewed the resident's note and discussed the case with the resident. I agree with the resident's findings and plan as documented. SUBJECTIVE: Patient is comfortable with no acute distress. c/o of having generalized numbness of his fingers and lower extremities and feels weak now that unable to ambulate. OBJECTIVE: Vital Signs Temperature 98.0 F 05/28/18 19:00 Pulse Rate 95 H 05/28/18 19:00 Respiratory Rate 18 05/28/18 19:00 Blood Pressure 112/64 05/28/18 19:00 O2 Sat by Pulse Oximetry (%) 97 05/28/18 14:51 GENERAL: AOX3 NAD HEAD: AT/NC. NOLAN. EOMI. Dry mucus membranes. NECK: Normal ROM, supple, no LAD/JVD. LUNGS: CTA B/L. No wheezes noted. Symmetric chest rise. HEART: RRR, normal S1 and S2 without murmur, rub or gallop. ABDOMEN: Soft, NT/ND. positive for BS MUSCULOSKELETAL: Normal range of motion at all joints. No bony deformities or tenderness. EXTREMITIES: 2+ pulses, warm, No calf tenderness. No edema. 4/5 R hip flexion. 5 /5 muscle strength knee extension/flexion, plantarflexion/dorsiflexion. NEUROLOGICAL: Cranial nerves II-XII intact. Normal speech. Diminished sensation in lower extremities b/l up to hips, as well as hands b/l up to wrists. PSYCHIATRIC: Cooperative. Good eye contact. Appropriate mood and affect. SKIN: Warm, dry, normal turgor, no rashes or lesions noted, normal capillary refill. CBCD WBC 4.8 K/mm3 (4.0-10.0) 05/28/18 06:00 RBC 3.75 M/mm3 (4.00-5.60) L 05/28/18 06:00 Hgb 12.2 GM/dL (11.7-16.9) 05/28/18 06:00 Hct 37.5 % (35.4-49) 05/28/18 06:00 MCV 100.0 fl (80-96) H 05/28/18 06:00 MCHC 32.7 g/dl (32.0-35.9) 05/28/18 06:00 RDW 13.7 % (11.9-15.9) 05/28/18 06:00 Plt Count 116 K/MM3 (134-434) L D 05/28/18 06:00 MPV 10.7 fl (7.5-11.1) 05/28/18 06:00 CMP Sodium 135 mmol/L (136-145) L 05/28/18 06:00 Potassium 4.0 mmol/L (3.5-5.1) 05/28/18 06:00 Chloride 99 mmol/L (98-107) 05/28/18 06:00 Carbon Dioxide 27 mmol/L (21-32) 05/28/18 06:00 Anion Gap 9 MMOL/L (8-16) 05/28/18 06:00 BUN 23 mg/dL (7-18) H 05/28/18 06:00 Creatinine 0.8 mg/dL (0.55-1.3) 05/28/18 06:00 Creat Clearance w eGFR > 60 (>60) 05/28/18 06:00 Random Glucose 78 mg/dL (74-106) 05/28/18 06:00 Calcium 8.2 mg/dL (8.5-10.1) L 05/28/18 06:00 Total Bilirubin 1.1 mg/dL (0.2-1) H 05/28/18 06:00 AST 30 U/L (15-37) 05/28/18 06:00 ALT 16 U/L (13-61) 05/28/18 06:00 Alkaline Phosphatase 66 U/L (45-117) 05/28/18 06:00 Total Protein 6.2 g/dl (6.4-8.2) L 05/28/18 06:00 Albumin 3.0 g/dl (3.4-5.0) L 05/28/18 06:00 Current Medications Generic Name Dose Route Start Last Admin Trade Name Deonna PRN Reason Stop Dose Admin Folic Acid 1 mg 05/28/18 11:30 05/28/18 14:12 Folic Acid - PO 1 mg DAILY RADHA Administration Immune Globulin 50 gm in 500 mls @ 73 mls/hr 05/28/18 17:15 05/28/18 17:41 Gamunex-C IVPB 05/29/18 00:05 73 mls/hr ONCE ONE Administration Immune Globulin 50 gm in 500 mls @ 71.429 mls/hr 05/29/18 17:00 Gamunex-C IVPB 05/31/18 23:59 DAILY@1700 [facility] Multivitamins 1 each 05/28/18 10:00 05/28/18 10:00 Total B With C - PO 1 each DAILY RADHA Administration Warfarin Sodium 5 mg 05/27/18 21:30 05/27/18 22:55 Coumadin - PO 5 mg MoWeFrSa@1800 RADHA Administration Warfarin Sodium 2.5 mg 05/28/18 18:00 05/28/18 17:04 Coumadin - PO 2.5 mg SuTuTh@1800 [facility] Administration Home Medications Medication Instructions Recorded Vitamin B Complex 1 each PO DAILY 01/13/14 ASSESSMENT AND PLAN: Patient is a 53yo male with PMHx of b/l feet numbness x 4 yrs, PE due to lupus anticoagulant on Coumadin (2014) , 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 Denies back pain, has no urinary incontinence. He feels that he cannot feel the floor when he is walking. As per patient has seen a data processing specialist and other w/ u has been done in the office. # Inflammatory Polyneuropathy: day 1 of IVIG for progressive idiopathic ganglionopathy s/p LP NL protein, Bx of Sural: axonal and demyleinating neuropathy, no inflammation seen, muscle BIOPSY negative. MRI LSPINE: no sig pathology : need to r/o vasculitis , will check rpr on him, also folic acid on a low side will add 1mg daily. Further w/u as per . As per Dr. 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 IVIG 2gm/kg day #1/5 days total dose (.4gm/kg daily dose) , as per dr Rendon notes: Results: SPEP, , C ANCA , P ANCA , MAG, HU , ESR (-), SSA /SSB (-) AST elevated BIOPSY SURAL-axonal and demyleinating neuropathy, no inflammation seen, muscle BIOPSY negative EM04/13/18 severe large fiber neuropathy subacute to chronic moderate severity chronic neuropathy, sensorimotor with axonal features; inflammatory Polyneuropathy, Unspecified: possible Vasculitis mediated neuropathy, ie immune mediated neuropathy vs idiopathic vs ganglionopathy , positive for profound LE sensory ataxia appears distal dependent and axonal /demyelinating less likely CIDP with NL CSFprotein Vasculitis labs re (-) thus far LP -NL protein, no clear inflam infiltrate reviewed nerve and muscle biopsy 01/10 no evidence of an inflam myopathy--based on biopsy SJGROEN , paraneoplastic RIVERA ( anti-Hu, anti-Yo, anti-Ri, Anti-CV2, Anti- Ma2, (- ) CT CHEST ABD PELVIS (-) paraneoplastic RIVERA (-) Hep SQ,
[2018-05-29 04:15] LABS: IGA IMMUNOGLOBULIN 115 mg/dL (90-386)
[2018-05-29 06:53] LABS: HEMATOCRIT 35.6 % (35.4-49); HEMOGLOBIN 11.7 GM/dL (11.7-16.9); MCH 32.7 pg (25.7-33.7); MCHC 32.9 g/dl (32.0-35.9); MEAN CELL VOLUME 99.4 fl (80-96); MEAN PLT VOLUME 10.3 fl (7.5-11.1); PLATELET COUNT 91 K/MM3 (134-434); RBC 3.58 M/mm3 (4.00-5.60); RDW 13.8 % (11.9-15.9)
[2018-05-29 07:22] LABS: ANION GAP 8 MMOL/L (8-16); BLOOD UREA NITROGEN 24 mg/dL (7-18); CALCIUM 8.1 mg/dL (8.5-10.1); CHLORIDE 101 mmol/L (98-107); CO2 27 mmol/L (21-32); CREATININE 0.9 mg/dL (0.55-1.3); GLUCOSE,RANDOM 73 mg/dL (74-106); POTASSIUM 3.6 mmol/L (3.5-5.1); SODIUM 136 mmol/L (136-145)
[2018-05-29 07:23] LABS: CHOLESTEROL 162 mg/dL (50-200); HDL CHOLESTEROL 58 mg/dL (40-60); TRIGLYCERIDES 52 mg/dL (0-150)
[2018-05-29] MEDS: VITAMIN B COMPLEX W/C COMBO TABLET (FP) PO SCH (10:01)
[2018-05-29] MEDS: FOLIC ACID 1 MG TABLET (FP) PO SCH (10:01)
[2018-05-29] MEDS ORDERED: WARFARIN NA 5 MG TABLET (UD) PO SCH ×2 (10:33→10:45)
--- NOTE | 2018-05-29 10:42 | PN ---
Physical Exam: SUBJECTIVE: Patient seen and examined at bedside. No acute events overnight. Pt has no complaints. OBJECTIVE: Vital Signs Period Temp Pulse Resp BP Sys/Chau Pulse Ox Last 24 Hr 97.7 F-98.6 F 86-96 18-20 105-125/64-79 95-100 GENERAL: AOX3 NAD HEAD: AT/NC. NOLAN. EOMI. Dry mucus membranes. NECK: Normal ROM, supple, no LAD/JVD. LUNGS: CTA B/L. No wheezes noted. Symmetric chest rise. HEART: RRR, normal S1 and S2 without murmur, rub or gallop. ABDOMEN: Soft, NT/ND. +BS in all 4Q's. MUSCULOSKELETAL: Normal range of motion at all joints. No bony deformities or tenderness. UPPER EXTREMITIES: 2+ pulses, warm, well-perfused. No cyanosis. No clubbing. No peripheral edema. 5/5 muscle strength b/l. LOWER EXTREMITIES: 2+ pulses, warm, well-perfused. No calf tenderness. No peripheral edema. 4/5 R hip flexion. 5/5 muscle strength knee extension/flexion , plantarflexion/dorsiflexion. NEUROLOGICAL: Cranial nerves II-XII intact. Normal speech. Diminished sensation in lower extremities b/l up to hips, as well as hands b/l up to wrists. PSYCHIATRIC: Cooperative. Good eye contact. Appropriate mood and affect. SKIN: Warm, dry, normal turgor, no rashes or lesions noted, normal capillary refill. CBCD WBC 3.0 K/mm3 (4.0-10.0) L 05/29/18 05:15 RBC 3.58 M/mm3 (4.00-5.60) L 05/29/18 05:15 Hgb 11.7 GM/dL (11.7-16.9) 05/29/18 05:15 Hct 35.6 % (35.4-49) 05/29/18 05:15 MCV 99.4 fl (80-96) H 05/29/18 05:15 MCHC 32.9 g/dl (32.0-35.9) 05/29/18 05:15 RDW 13.8 % (11.9-15.9) 05/29/18 05:15 Plt Count 91 K/MM3 (134-434) L D 05/29/18 05:15 MPV 10.3 fl (7.5-11.1) 05/29/18 05:15 CMP Sodium 136 mmol/L (136-145) 05/29/18 05:15 Potassium 3.6 mmol/L (3.5-5.1) 05/29/18 05:15 Chloride 101 mmol/L (98-107) 05/29/18 05:15 Carbon Dioxide 27 mmol/L (21-32) 05/29/18 05:15 Anion Gap 8 MMOL/L (8-16) 05/29/18 05:15 BUN 24 mg/dL (7-18) H 05/29/18 05:15 Creatinine 0.9 mg/dL (0.55-1.3) 05/29/18 05:15 Creat Clearance w eGFR > 60 (>60) 05/29/18 05:15 Calcium 8.1 mg/dL (8.5-10.1) L 05/29/18 05:15 Total Bilirubin 1.1 mg/dL (0.2-1) H 05/28/18 06:00 AST 30 U/L (15-37) 05/28/18 06:00 ALT 16 U/L (13-61) 05/28/18 06:00 Alkaline Phosphatase 66 U/L (45-117) 05/28/18 06:00 Total Protein 6.2 g/dl (6.4-8.2) L 05/28/18 06:00 Albumin 3.0 g/dl (3.4-5.0) L 05/28/18 06:00 Active Medications Enoxaparin Sodium (Lovenox -) 120 mg SQ BID [facility] Folic Acid (Folic Acid -) 1 mg PO DAILY [facility] Last Admin: 05/29/18 10:01 Dose: 1 mg Immune Globulin (Gamunex-C) 50 gm in 500 mls @ 71.429 mls/hr IVPB DAILY@1700 [facility] Stop: 05/31/18 23:59 Multivitamins (Total B With C -) 1 each PO DAILY [facility] Last Admin: 05/29/18 10:01 Dose: 1 each Warfarin Sodium (Coumadin -) 7.5 mg PO DAILY [facility] ASSESSMENT/PLAN: 53 yo M w/ PMH of 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 #Progressive idiopathic ganglionopathy - Patient getting IVIG under the guidance of the neurologist. -Will hold his usual antihypertensive drugs in view of low BP -Per neuro, IVIG 2gm/kg over 5 days total dose (.4gm/kg daily dose; started ) for progressive idiopathic ganglionopathy. F/u neuro recs. -IgA 115, ESR 22, YAJAIRA pending, RF <10.0, JER -Vit B12 620 -TSH 3.68/Free T4 1.26 -TG 52, Chol 162, LDL 89, HDL 58 -Folic acid 1 mg PO QD, Vitamin B Complex -PT consult #HTN - low BP 100/67. -hold home BP med: Lisinopril/HCTZ 20-12.5 #Hx of PE; INR 1.33 today. Cont to monitor INR. -Increased dosage of Coumadin to 7.5 mg PO daily -Add Lovenox 120 mg BID -Will continue coverage with Lovenox until INR becomes therapeutic -recheck INR in AM #Prophylaxis DVT- Coumadin 7.5 mg PO QD, Lovenox 120 mg BID #FEN -no IVf -recheck lytes in AM -sodium-controlled diet #Dispo -cont to monitor on med/surg -full code Visit type - Emergency Visit Emergency Visit: Yes ED Registration Date: 05/27/18 Care time: The patient presented to the Emergency Department on the above date and was hospitalized for further evaluation of their emergent condition. - New Patient This patient is new to me today: No - Critical Care Critical Care patient: No
[2018-05-29 12:11] LABS: INR 1.61 (0.83-1.09); PROTHROMBIN TIME (PATIENT) 19.1 SEC (9.7-13.0)
[2018-05-29] MEDS: LACTOBACILLUS ACIDOPHILUS 1 TABLET PO SCH (12:59)
[2018-05-29] MEDS: ENOXAPARIN NA (PORCINE) 120 MG/0.8 ML DISP.SYRIN SQ SCH ×2 (13:00→21:11)
[2018-05-29] MEDS ORDERED: PT OWN MED DRAWER 7, Y5N ONE ×2 (13:19→21:01)
[2018-05-29] MEDS: IMMUNE GLOBULIN IVPB SCH ×2 (16:41→17:40)
[2018-05-29] MEDS: WARFARIN NA 7.5 MG TABLET (FP) PO SCH (17:05)
--- NOTE | 2018-05-29 18:25 | PN ---
Teaching Attending Note Name of Resident: Fely Nicole ATTENDING PHYSICIAN STATEMENT I saw and evaluated the patient. I reviewed the resident's note and discussed the case with the resident. I agree with the resident's findings and plan as documented. SUBJECTIVE: Patient has no new complain. No changes in his symptoms. OBJECTIVE: Vital Signs Temperature 98.2 F 05/29/18 13:49 Pulse Rate 90 05/29/18 13:49 Respiratory Rate 20 05/29/18 13:49 Blood Pressure 118/74 05/29/18 13:49 O2 Sat by Pulse Oximetry (%) 100 05/29/18 09:00 GENERAL: AOX3 NAD HEAD: AT/NC. NOLAN. EOMI. Dry mucus membranes. NECK: Normal ROM, supple, no LAD/JVD. LUNGS: CTA B/L. No wheezes noted. Symmetric chest rise. HEART: RRR, normal S1 and S2 without murmur, rub or gallop. ABDOMEN: Soft, NT/ND. positive for BS MUSCULOSKELETAL: Normal range of motion at all joints. No bony deformities or tenderness. EXTREMITIES: 2+ pulses, warm, No calf tenderness. No edema. 4/5 R hip flexion. 5 /5 muscle strength knee extension/flexion, plantarflexion/dorsiflexion. NEUROLOGICAL: Cranial nerves II-XII intact. Normal speech. Diminished sensation in lower extremities b/l up to hips, as well as hands b/l up to wrists. PSYCHIATRIC: Cooperative. Good eye contact. Appropriate mood and affect. SKIN: Warm, dry, normal turgor, no rashes or lesions noted, normal capillary refill. CBCD WBC 3.0 K/mm3 (4.0-10.0) L 05/29/18 05:15 RBC 3.58 M/mm3 (4.00-5.60) L 05/29/18 05:15 Hgb 11.7 GM/dL (11.7-16.9) 05/29/18 05:15 Hct 35.6 % (35.4-49) 05/29/18 05:15 MCV 99.4 fl (80-96) H 05/29/18 05:15 MCHC 32.9 g/dl (32.0-35.9) 05/29/18 05:15 RDW 13.8 % (11.9-15.9) 05/29/18 05:15 Plt Count 91 K/MM3 (134-434) L D 05/29/18 05:15 MPV 10.3 fl (7.5-11.1) 05/29/18 05:15 CMP Sodium 136 mmol/L (136-145) 05/29/18 05:15 Potassium 3.6 mmol/L (3.5-5.1) 05/29/18 05:15 Chloride 101 mmol/L (98-107) 05/29/18 05:15 Carbon Dioxide 27 mmol/L (21-32) 05/29/18 05:15 Anion Gap 8 MMOL/L (8-16) 05/29/18 05:15 BUN 24 mg/dL (7-18) H 05/29/18 05:15 Creatinine 0.9 mg/dL (0.55-1.3) 05/29/18 05:15 Creat Clearance w eGFR > 60 (>60) 05/29/18 05:15 Random Glucose 73 mg/dL (74-106) L 05/29/18 05:15 Calcium 8.1 mg/dL (8.5-10.1) L 05/29/18 05:15 Total Bilirubin 1.1 mg/dL (0.2-1) H 05/28/18 06:00 AST 30 U/L (15-37) 05/28/18 06:00 ALT 16 U/L (13-61) 05/28/18 06:00 Alkaline Phosphatase 66 U/L (45-117) 05/28/18 06:00 Total Protein 6.2 g/dl (6.4-8.2) L 05/28/18 06:00 Albumin 3.0 g/dl (3.4-5.0) L 05/28/18 06:00 Current Medications Generic Name Dose Route Start Last Admin Trade Name Freq PRN Reason Stop Dose Admin Enoxaparin Sodium 120 mg 05/29/18 11:15 05/29/18 13:00 Lovenox - SQ 120 mg BID [facility] Administration Folic Acid 1 mg 05/28/18 11:30 05/29/18 10:01 Folic Acid - PO 1 mg DAILY [facility] Administration Immune Globulin 50 gm in 500 mls @ 71.429 mls/hr 05/29/18 17:00 05/29/18 17: 40 Gamunex-C IVPB 05/31/18 23:59 71.429 mls/hr DAILY@1700 [facility] Administration Lactobacillus Acidophilus 1 tab 05/29/18 12:45 05/29/18 12:59 Bacid - PO 1 tab DAILY [facility] Administration Multivitamins 1 each 05/28/18 10:00 05/29/18 10:01 Total B With C - PO 1 each DAILY [facility] Administration Warfarin Sodium 7.5 mg 05/29/18 18:00 05/29/18 17:05 Coumadin - PO 7.5 mg DAILY@1800 [facility] Administration Home Medications Medication Instructions Recorded Vitamin B Complex 1 each PO DAILY 01/13/14 ASSESSMENT AND PLAN: Patient is a 53yo male with PMHx of b/l feet numbness x 4 yrs, PE due to lupus anticoagulant on Coumadin (2014) , 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 Denies back pain, has no urinary incontinence. He feels that he cannot feel the floor when he is walking. As per patient has seen a buckle sorter and other w/ u has been done in the office. # Inflammatory Polyneuropathy: day 2 of IVIG for progressive idiopathic ganglionopathy s/p LP NL protein, Bx of Sural: axonal and demyleinating neuropathy, no inflammation seen, muscle BIOPSY negative. MRI LSPINE: no sig pathology : need to r/o vasculitis , will check rpr on him, also folic acid on a low side will add 1mg daily. Further w/u as per . As per Dr. 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 IVIG 2gm/kg day #2/5 days total dose (.4gm/kg daily dose) , as per dr Rendon notes: Results: SPEP, , C ANCA , P ANCA , MAG, HU , ESR (-), SSA /SSB (-) AST elevated BIOPSY SURAL-axonal and demyleinating neuropathy, no inflammation seen, muscle BIOPSY negative EM04/13/18 severe large fiber neuropathy subacute to chronic moderate severity chronic neuropathy, sensorimotor with axonal features; inflammatory Polyneuropathy, Unspecified: possible Vasculitis mediated neuropathy, ie immune mediated neuropathy vs idiopathic vs ganglionopathy , positive for profound LE sensory ataxia appears distal dependent and axonal /demyelinating less likely CIDP with NL CSFprotein Vasculitis labs re (-) thus far LP -NL protein, no clear inflam infiltrate reviewed nerve and muscle biopsy 01/10 no evidence of an inflam myopathy--based on biopsy SJGROEN , paraneoplastic RIVERA ( anti-Hu, anti-Yo, anti-Ri, Anti-CV2, Anti- Ma2, (- ) CT CHEST ABD PELVIS (-) paraneoplastic RIVERA (-) Hep SQ,
[2018-05-30] MEDS ORDERED: PT OWN MED DRAWER 7, Y5N ONE ×2 (05:26→21:07)
[2018-05-30 08:25] LABS: HEMATOCRIT 35.2 % (35.4-49); HEMOGLOBIN 11.5 GM/dL (11.7-16.9); MCH 32.3 pg (25.7-33.7); MCHC 32.7 g/dl (32.0-35.9); MEAN CELL VOLUME 98.6 fl (80-96); MEAN PLT VOLUME 10.5 fl (7.5-11.1); PLATELET COUNT 89 K/MM3 (134-434); RBC 3.57 M/mm3 (4.00-5.60); RDW 13.6 % (11.9-15.9); WHITE BLOOD COUNT 2.4 K/mm3 (4.0-10.0)
[2018-05-30 08:31] LABS: INR 1.59 (0.83-1.09); PROTHROMBIN TIME (PATIENT) 18.9 SEC (9.7-13.0)
[2018-05-30] MEDS: FOLIC ACID 1 MG TABLET (FP) PO SCH (09:01)
[2018-05-30] MEDS: LACTOBACILLUS ACIDOPHILUS 1 TABLET PO SCH (09:01)
[2018-05-30] MEDS: VITAMIN B COMPLEX W/C COMBO TABLET (FP) PO SCH (09:01)
[2018-05-30] MEDS: ENOXAPARIN NA (PORCINE) 120 MG/0.8 ML DISP.SYRIN SQ SCH ×2 (09:02→21:21)
[2018-05-30 09:48] LABS: ANION GAP 8 MMOL/L (8-16); BLOOD UREA NITROGEN 17 mg/dL (7-18); CALCIUM 8.4 mg/dL (8.5-10.1); CHLORIDE 102 mmol/L (98-107); CO2 27 mmol/L (21-32); CREATININE 0.8 mg/dL (0.55-1.3); GLUCOSE,RANDOM 81 mg/dL (74-106); POTASSIUM 3.6 mmol/L (3.5-5.1); SODIUM 137 mmol/L (136-145)
--- NOTE | 2018-05-30 10:51 | PN ---
Progress Note (short form) - Note Progress Note: Vital Signs Temperature 98.4 F 05/30/18 08:51 Pulse Rate 92 H 05/30/18 08:51 Respiratory Rate 20 05/30/18 08:51 Blood Pressure 122/87 05/30/18 08:51 O2 Sat by Pulse Oximetry (%) 96 05/29/18 21:00 GENERAL: AOX3 NAD HEAD: AT/NC. NOLAN. EOMI. Dry mucus membranes. NECK: Normal ROM, supple, no LAD/JVD. LUNGS: CTA B/L. No wheezes noted. Symmetric chest rise. HEART: RRR, normal S1 and S2 without murmur, rub or gallop. ABDOMEN: Soft, NT/ND. positive for BS MUSCULOSKELETAL: Normal range of motion at all joints. No bony deformities or tenderness. EXTREMITIES: 2+ pulses, warm, No calf tenderness. No edema. 4/5 R hip flexion. 5 /5 muscle strength knee extension/flexion, plantarflexion/dorsiflexion. NEUROLOGICAL: Cranial nerves II-XII intact. Normal speech. Diminished sensation in lower extremities b/l up to hips, as well as hands b/l up to wrists. PSYCHIATRIC: Cooperative. Good eye contact. Appropriate mood and affect. SKIN: Warm, dry, normal turgor, no rashes or lesions noted, normal capillary refill. CBCD WBC 2.4 K/mm3 (4.0-10.0) L 05/30/18 07:00 RBC 3.57 M/mm3 (4.00-5.60) L 05/30/18 07:00 Hgb 11.5 GM/dL (11.7-16.9) L 05/30/18 07:00 Hct 35.2 % (35.4-49) L 05/30/18 07:00 MCV 98.6 fl (80-96) H 05/30/18 07:00 MCHC 32.7 g/dl (32.0-35.9) 05/30/18 07:00 RDW 13.6 % (11.9-15.9) 05/30/18 07:00 Plt Count 89 K/MM3 (134-434) L 05/30/18 07:00 MPV 10.5 fl (7.5-11.1) 05/30/18 07:00 CMP Sodium 137 mmol/L (136-145) 05/30/18 07:00 Potassium 3.6 mmol/L (3.5-5.1) 05/30/18 07:00 Chloride 102 mmol/L (98-107) 05/30/18 07:00 Carbon Dioxide 27 mmol/L (21-32) 05/30/18 07:00 Anion Gap 8 MMOL/L (8-16) 05/30/18 07:00 BUN 17 mg/dL (7-18) 05/30/18 07:00 Creatinine 0.8 mg/dL (0.55-1.3) 05/30/18 07:00 Creat Clearance w eGFR > 60 (>60) 05/30/18 07:00 Random Glucose 81 mg/dL (74-106) 05/30/18 07:00 Calcium 8.4 mg/dL (8.5-10.1) L 05/30/18 07:00 Total Bilirubin 1.1 mg/dL (0.2-1) H 05/28/18 06:00 AST 30 U/L (15-37) 05/28/18 06:00 ALT 16 U/L (13-61) 05/28/18 06:00 Alkaline Phosphatase 66 U/L (45-117) 05/28/18 06:00 Total Protein 6.2 g/dl (6.4-8.2) L 05/28/18 06:00 Albumin 3.0 g/dl (3.4-5.0) L 05/28/18 06:00 Current Medications Generic Name Dose Route Start Last Admin Trade Name Freq PRN Reason Stop Dose Admin Enoxaparin Sodium 120 mg 05/29/18 11:15 05/30/18 09:02 Lovenox - SQ 120 mg BID [facility] Administration Folic Acid 1 mg 05/28/18 11:30 05/30/18 09:01 Folic Acid - PO 1 mg DAILY [facility] Administration Immune Globulin 50 gm in 500 mls @ 71.429 mls/hr 05/29/18 17:00 05/29/18 17: 40 Gamunex-C IVPB 05/31/18 23:59 71.429 mls/hr DAILY@1700 [facility] Administration Lactobacillus Acidophilus 1 tab 05/29/18 12:45 05/30/18 09:01 Bacid - PO 1 tab DAILY [facility] Administration Multivitamins 1 each 05/28/18 10:00 05/30/18 09:01 Total B With C - PO 1 each DAILY [facility] Administration Warfarin Sodium 7.5 mg 05/29/18 18:00 05/29/18 17:05 Coumadin - PO 7.5 mg DAILY@1800 [facility] Administration Home Medications Medication Instructions Recorded Vitamin B Complex 1 each PO DAILY 01/13/14 A/P: Patient is a 53yo male with PMHx of b/l feet numbness x 4 yrs, PE due to lupus anticoagulant on Coumadin (2014) , 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 Denies back pain, has no urinary incontinence. He feels that he cannot feel the floor when he is walking. As per patient has seen a kindergartner and other w/ u has been done in the office. # Inflammatory Polyneuropathy unknown cause so far but most likely enviromental organophosphates exposure: day 3 of IVIG for progressive idiopathic ganglionopathy s/p LP NL protein, Bx of Sural: axonal and demyleinating neuropathy, no inflammation seen, muscle BIOPSY negative. MRI LSPINE: no sig pathology : need to r/o vasculitis , will check rpr on him, also folic acid on a low side will add 1mg daily. Further w/u as per . As per Dr. 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 IVIG 2gm/kg day #3/5 days total dose (.4gm/kg daily dose) , as per dr Rendon notes: Results: SPEP, , C ANCA , P ANCA , MAG, HU , ESR (-), SSA /SSB (-) AST elevated BIOPSY SURAL-axonal and demyleinating neuropathy, no inflammation seen, muscle BIOPSY negative EM04/13/18 severe large fiber neuropathy subacute to chronic moderate severity chronic neuropathy, sensorimotor with axonal features; inflammatory Polyneuropathy, Unspecified: possible Vasculitis mediated neuropathy, ie immune mediated neuropathy vs idiopathic vs ganglionopathy , positive for profound LE sensory ataxia appears distal dependent and axonal /demyelinating less likely CIDP with NL CSFprotein Vasculitis labs re (-) thus far LP -NL protein, no clear inflam infiltrate reviewed nerve and muscle biopsy 01/10 no evidence of an inflam myopathy--based on biopsy SJGROEN , paraneoplastic RIVERA ( anti-Hu, anti-Yo, anti-Ri, Anti-CV2, Anti- Ma2, (- ) CT CHEST ABD PELVIS (-) paraneoplastic RIVERA (-) Hep SQ Visit type - Emergency Visit Emergency Visit: Yes ED Registration Date: 05/27/18 Care time: The patient presented to the Emergency Department on the above date and was hospitalized for further evaluation of their emergent condition. - New Patient This patient is new to me today: No - Critical Care Critical Care patient: No - Discharge Referral Referred to [facility] Med [facility] No
[2018-05-30] MEDS: RANITIDINE HCL 150 MG TABLET (FP) PO SCH (16:24)
[2018-05-30] MEDS: WARFARIN NA 7.5 MG TABLET (FP) PO SCH (17:01)
[2018-05-30] MEDS: IMMUNE GLOBULIN IVPB SCH (17:04)
[2018-05-30] MEDS ORDERED: SODIUM CHLORIDE 0.45% 1,000 ML IV SCH (19:30)
[2018-05-31] MEDS ORDERED: INSULIN (NOVOLOG) ASPART 100 UNITS/ML 10ML VIAL ONE (06:19)
[2018-05-31] MEDS ORDERED: PT OWN MED DRAWER 7, Y5N ONE (06:19)
[2018-05-31 06:52] LABS: INR 1.64 (0.83-1.09); PROTHROMBIN TIME (PATIENT) 19.5 SEC (9.7-13.0)
[2018-05-31] MEDS: ENOXAPARIN NA (PORCINE) 120 MG/0.8 ML DISP.SYRIN SQ SCH ×2 (09:09→21:39)
[2018-05-31] MEDS: FOLIC ACID 1 MG TABLET (FP) PO SCH (09:10)
[2018-05-31] MEDS: RANITIDINE HCL 150 MG TABLET (FP) PO SCH (09:10)
[2018-05-31] MEDS: VITAMIN B COMPLEX W/C COMBO TABLET (FP) PO SCH (09:10)
[2018-05-31] MEDS: LACTOBACILLUS ACIDOPHILUS 1 TABLET PO SCH (09:10)
--- NOTE | 2018-05-31 12:22 | PN ---
Progress Note (short form) - Note Progress Note: 53 M c/o b/l feet numbness x 4 yrs, posterior aspect right below knees. + Difficulty walking bc cannot feel his feet. +weakness. Denies back pain, BB incontinence Denies hx DM Hx Raynaulds ; fingers may tingle, and goes white when exposed to cold then bright red when warmed up +hx Lupus anti-coagulant, dx 2014; hx PE, on coumadin 5mg QD blood work (-) -s/p biopsy and LP -- no clear dx on pathology beyond axonal and demyelinating neuropathy -now unable towalk x 4-5 months , unable to control legs , weaker than prior Numbness worsen extended up to low back, feels hands getting numb as well difficulty feeling floor. No falls. Saw RHEUM, w/u P. Vit B12 supplements (B12 low on bloodwork). hx of LA+2012, repeat recent (-) low B12, Low vit D; lyme ssa, ssba , esr (-) to review , spoke to RHEUM /DR Miller (-) NICOLE essentially and told lupus AC may covert (-), no signs of lupus as of now FU : s/p day #5/5 IVIG no new issues tolerated OK PRIOR Results: Results: SPEP, , C ANCA , P ANCA , MAG, HU , ESR (-), SSA /SSB (-) AST elevated Labs: LP -NL protein BIOPSY SURAL- axonal and demyleinating neuropathy, no inflammation seen, muscle BIOPSY (-) EM04/13/18 severe large fiber neuropathy -subacute to chronic moderate severity chronic neuropathy, sensorimotor with axonal features; - Past Medical History Cardio/Vascular: Yes: HTN - Past Surgical History Past Surgical History: Yes: Vein Stripping/Ligation - Alcohol/Substance Use Hx Alcohol Use: No - Smoking History Smoking history: Former smoker Have you smoked in the past 12 months: No Aproximately how many cigarettes per day: 0 If you are a former smoker, when did you quit?: SEVERAL YEARS 20+ - Social History Usual Living Arrangement: Other (roomate) ADL: Independent Home Medications - Allergies Allergies/Adverse Reactions: Allergies Allergy/AdvReac Type Severity Reaction Status Date / Time No Known Allergies Allergy Verified 01/19/18 08:39 - Home Medications Home Medications: Ambulatory Orders Vitamin B Complex 1 each PO DAILY 01/13/14 Family Disease History - Family Disease History Family Disease History: Other: Mother (dvts in the past), Sister (lupus anticoagulant) Physical Exam-Neuro Vital Signs: Vital Signs Temperature 98 F 05/31/18 08:29 Pulse Rate 91 H 05/31/18 08:29 Respiratory Rate 18 05/31/18 09:00 Blood Pressure 134/98 05/31/18 08:29 O2 Sat by Pulse Oximetry (%) 98 05/31/18 09:00 Labs: CBC, BMP 05/27/18 17:34 05/27/18 17:34 - Neuro Exam Level Of Consciousness: Yes: Alert (Mental Status: Mood is appropriate. Immediate recall is intact. Short term memory is intact. intermediate teacher memory is intact. There is no evidence of expressive or receptive aphasia. 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 - INFLAMMATORY POLYNEUROPATHY, UNSPECIFIED (2) Abnormal gait Code(s): R26.9 - UNSPECIFIED ABNORMALITIES OF GAIT AND MOBILITY (3) Sensory ganglionopathy Code(s): G54.9 - NERVE ROOT AND PLEXUS DISORDER, UNSPECIFIED Assessment/Plan G61.9..........INFLAMMATORY POLYNEUROPATHY, UNSPECIFIED R20.2..........PARESTHESIA OF SKIN Plan: Inflammatory Polyneuropathy, Unspecified: ?Vasculitis mediated neuropathy, ie immune mediated neuropathy vs idiopathic vs ganglionopathy--+ profound LE sensory ataxia appears distal dependent and axonal /demyelinating less likely CIDP with NL CSFprotein Vasculitis labs re (-) thus far LP -NL protein, no clear inflam infiltrate reviewed nerve and muscle biopsy 01/10 no evidence of an inflam myopathy--based on biopsy MRI LSPINE-no sig pathology SJGROEN , paraneoplastic RIVERA ( anti-Hu, anti-Yo, anti-Ri, Anti-CV2, Anti- Ma2, (- ) CT CHEST ABD PELVIS (-) paraneoplastic RIVERA (-) IVIG 2gm/kg over 5 days total dose (.4gm/kg daily dose) , day 5/ neurology cleared for Dc after last dose Suraj ensure TX INR , may need FU outpt for this HEM (hx of APS) ; spoke to team DR BEST Problem List - Problems (1) Inflammatory neuropathy Code(s): G61.9 - INFLAMMATORY POLYNEUROPATHY, UNSPECIFIED (2) Abnormal gait Code(s): R26.9 - UNSPECIFIED ABNORMALITIES OF GAIT AND MOBILITY (3) Sensory ganglionopathy Code(s): G54.9 - NERVE ROOT AND PLEXUS DISORDER, UNSPECIFIED
--- NOTE | 2018-05-31 14:20 | PN ---
Teaching Attending Note Name of Resident: Fely Nicole ATTENDING PHYSICIAN STATEMENT I saw and evaluated the patient. I reviewed the resident's note and discussed the case with the resident. I agree with the resident's findings and plan as documented. SUBJECTIVE: Patient stated that he started to feel his legs last night. No fever or chills. No nausea or vomiting. OBJECTIVE: Vital Signs Temperature 98 F 05/31/18 08:29 Pulse Rate 91 H 05/31/18 08:29 Respiratory Rate 18 05/31/18 09:00 Blood Pressure 134/98 05/31/18 08:29 O2 Sat by Pulse Oximetry (%) 98 05/31/18 09:00 GENERAL: AOX3 NAD HEAD: AT/NC. NOLAN. EOMI. Dry mucus membranes. NECK: Normal ROM, supple, no LAD/JVD. LUNGS: CTA B/L. No wheezes noted. Symmetric chest rise. HEART: RRR, normal S1 and S2 without murmur, rub or gallop. ABDOMEN: Soft, NT/ND. positive for BS MUSCULOSKELETAL: Normal range of motion at all joints. No bony deformities or tenderness. EXTREMITIES: 2+ pulses, warm, No calf tenderness. No edema. 5/5 muscle strength NEUROLOGICAL: Cranial nerves II-XII intact. Normal speech. Diminished sensation in lower extremities b/l up to hips, as well as hands b/l up to wrists. PSYCHIATRIC: Cooperative. Good eye contact. Appropriate mood and affect. SKIN: Warm, dry, normal turgor, no rashes or lesions noted, normal capillary refill. CBCD WBC 2.4 K/mm3 (4.0-10.0) L 05/30/18 07:00 RBC 3.57 M/mm3 (4.00-5.60) L 05/30/18 07:00 Hgb 11.5 GM/dL (11.7-16.9) L 05/30/18 07:00 Hct 35.2 % (35.4-49) L 05/30/18 07:00 MCV 98.6 fl (80-96) H 05/30/18 07:00 MCHC 32.7 g/dl (32.0-35.9) 05/30/18 07:00 RDW 13.6 % (11.9-15.9) 05/30/18 07:00 Plt Count 89 K/MM3 (134-434) L 05/30/18 07:00 MPV 10.5 fl (7.5-11.1) 05/30/18 07:00 CMP Sodium 137 mmol/L (136-145) 05/30/18 07:00 Potassium 3.6 mmol/L (3.5-5.1) 05/30/18 07:00 Chloride 102 mmol/L (98-107) 05/30/18 07:00 Carbon Dioxide 27 mmol/L (21-32) 05/30/18 07:00 Anion Gap 8 MMOL/L (8-16) 05/30/18 07:00 BUN 17 mg/dL (7-18) 05/30/18 07:00 Creatinine 0.8 mg/dL (0.55-1.3) 05/30/18 07:00 Creat Clearance w eGFR > 60 (>60) 05/30/18 07:00 Random Glucose 81 mg/dL (74-106) 05/30/18 07:00 Calcium 8.4 mg/dL (8.5-10.1) L 05/30/18 07:00 Total Bilirubin 1.1 mg/dL (0.2-1) H 05/28/18 06:00 AST 30 U/L (15-37) 05/28/18 06:00 ALT 16 U/L (13-61) 05/28/18 06:00 Alkaline Phosphatase 66 U/L (45-117) 05/28/18 06:00 Total Protein 6.2 g/dl (6.4-8.2) L 05/28/18 06:00 Albumin 3.0 g/dl (3.4-5.0) L 05/28/18 06:00 Current Medications Generic Name Dose Route Start Last Admin Trade Name Freq PRN Reason Stop Dose Admin Enoxaparin Sodium 120 mg 05/29/18 11:15 05/31/18 09:09 Lovenox - SQ 120 mg BID RADHA Administration Folic Acid 1 mg 05/28/18 11:30 05/31/18 09:10 Folic Acid - PO 1 mg DAILY RADHA Administration Immune Globulin 50 gm in 500 mls @ 71.429 mls/hr 05/29/18 17:00 05/30/18 17: 04 Gamunex-C IVPB 05/31/18 23:59 71.429 mls/hr DAILY@1700 RADHA Administration Lactobacillus Acidophilus 1 tab 05/29/18 12:45 05/31/18 09:10 Bacid - PO 1 tab DAILY RADHA Administration Multivitamins 1 each 05/28/18 10:00 05/31/18 09:10 Total B With C - PO 1 each DAILY RADHA Administration Ranitidine HCl 150 mg 05/30/18 16:00 05/31/18 09:10 Zantac - PO 150 mg DAILY RADHA Administration Warfarin Sodium 10 mg 05/31/18 18:00 Coumadin - PO 05/31/18 18:01 ONCE@1800 ONE Home Medications Medication Instructions Recorded Vitamin B Complex 1 each PO DAILY 01/13/14 ASSESSMENT AND PLAN: Patient is a 53yo male with PMHx of b/l feet numbness x 4 yrs, PE due to lupus anticoagulant on Coumadin (2014) , 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 Denies back pain, has no urinary incontinence. He feels that he cannot feel the floor when he is walking. As per patient has seen a engraver copperplate and other w/ u has been done in the office. 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 MRI LSPINE: no sig pathology : need to r/o vasculitis , will check rpr on him, also folic acid on a low side will add 1mg daily. Further w/u as per . As per Dr. 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 provided him with the phone # and the name of the doctor. IVIG 2gm/kg day #5/5 days total dose (.4gm/kg daily dose). # Lupus anticoagulant positive on Coumadin, INR nontherapeutic, 1.68, increased the dose of Coumadin to 10mg tonight, on Lovenox for bridging 120mg po BID. as per dr Rendon notes: Results: SPEP, , C ANCA , P ANCA , MAG, HU , ESR (-), SSA /SSB (-) AST elevated BIOPSY SURAL-axonal and demyleinating neuropathy, no inflammation seen, muscle BIOPSY negative EM04/13/18 severe large fiber neuropathy subacute to chronic moderate severity chronic neuropathy, sensorimotor with axonal features; inflammatory Polyneuropathy, Unspecified: possible Vasculitis mediated neuropathy, ie immune mediated neuropathy vs idiopathic vs ganglionopathy , positive for profound LE sensory ataxia appears distal dependent and axonal /demyelinating less likely CIDP with NL CSFprotein Vasculitis labs re (-) thus far LP -NL protein, no clear inflam infiltrate reviewed nerve and muscle biopsy 01/10 no evidence of an inflam myopathy--based on biopsy SJGROEN , paraneoplastic RIVERA ( anti-Hu, anti-Yo, anti-Ri, Anti-CV2, Anti- Ma2, (- ) CT CHEST ABD PELVIS (-) paraneoplastic RIVERA (-) DVT Px: lovenox/coumadin
[2018-05-31] MEDS: IMMUNE GLOBULIN IVPB SCH (16:02)
[2018-05-31] MEDS ORDERED: WARFARIN NA 10 MG TABLET (FP) PO ONE (18:00)
--- NOTE | 2018-05-31 18:22 | PN ---
Physical Exam: SUBJECTIVE: Patient seen and examined at bedside. No acute events overnight. Pt has no complains. Denies chest pain, sob, abd pain, urinary/bowel symptoms. Aletha PO diet. No new neurological deficits noted. OBJECTIVE: Vital Signs Temperature 99.2 F 05/31/18 17:00 Pulse Rate 95 H 05/31/18 17:00 Respiratory Rate 16 05/31/18 17:00 Blood Pressure 120/53 L 05/31/18 17:00 O2 Sat by Pulse Oximetry (%) 98 05/31/18 09:00 GENERAL: AOX3 NAD HEAD: AT/NC. NOLAN. EOMI. Dry mucus membranes. NECK: Normal ROM, supple, no LAD/JVD. LUNGS: CTA B/L. No wheezes noted. Symmetric chest rise. HEART: RRR, normal S1 and S2 without murmur, rub or gallop. ABDOMEN: Soft, NT/ND. +BS in all 4Q's. MUSCULOSKELETAL: Normal range of motion at all joints. No bony deformities or tenderness. UPPER EXTREMITIES: 2+ pulses, warm, well-perfused. No cyanosis. No clubbing. No peripheral edema. 5/5 muscle strength b/l. LOWER EXTREMITIES: 2+ pulses, warm, well-perfused. No calf tenderness. No peripheral edema. 4/5 R hip flexion. 5/5 muscle strength knee extension/flexion , plantarflexion/dorsiflexion. NEUROLOGICAL: Cranial nerves II-XII intact. Normal speech. Diminished sensation in lower extremities b/l up to hips, as well as hands b/l up to wrists. PSYCHIATRIC: Cooperative. Good eye contact. Appropriate mood and affect. SKIN: Warm, dry, normal turgor, no rashes or lesions noted, normal capillary refill. Laboratory Results - last 24 hr 05/31/18 05:25 PT with INR 19.50 H INR 1.64 H Active Medications Enoxaparin Sodium (Lovenox -) 120 mg SQ BID [facility] Last Admin: 05/31/18 09:09 Dose: 120 mg Folic Acid (Folic Acid -) 1 mg PO DAILY [facility] Last Admin: 05/31/18 09:10 Dose: 1 mg Immune Globulin (Gamunex-C) 50 gm in 500 mls @ 71.429 mls/hr IVPB DAILY@1700 [facility] Stop: 05/31/18 23:59 Last Admin: 05/31/18 16:02 Dose: 71.429 mls/hr Lactobacillus Acidophilus (Bacid -) 1 tab PO DAILY [facility] Last Admin: 05/31/18 09:10 Dose: 1 tab Multivitamins (Total B With C -) 1 each PO DAILY [facility] Last Admin: 05/31/18 09:10 Dose: 1 each Ranitidine HCl (Zantac -) 150 mg PO DAILY [facility] Last Admin: 05/31/18 09:10 Dose: 150 mg ASSESSMENT/PLAN: 53 yo M w/ PMH of 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 #Progressive idiopathic ganglionopathy - Patient getting IVIG under the guidance of the neurologist. -Will hold his usual antihypertensive drugs in view of low BP -Per neuro, IVIG .4gm/kg daily dose x5 days total; started 05/28/18 for progressive idiopathic ganglionopathy. Day 5 completed. -IgA 115, ESR 22, YAJAIRA pending, RF <10.0, JER -Vit B12 620 -TSH 3.68/Free T4 1.26 -TG 52, Chol 162, LDL 89, HDL 58 -Folic acid 1 mg PO QD, Vitamin B Complex -PT consult #HTN - low BP 100/67. -hold home BP med: Lisinopril/HCTZ 20-12.5 #Hx of PE; INR 1.64 today. Cont to monitor INR. -Increased dosage of Coumadin to 10 mg PO daily -Lovenox 120 mg BID -Will continue coverage with Lovenox until INR becomes therapeutic -recheck INR in AM #Prophylaxis DVT- Coumadin 10 mg PO QD, Lovenox 120 mg BID #FEN -no IVf -recheck lytes in AM -sodium-controlled diet #Dispo -cont to monitor on med/surg -full code Visit type - Emergency Visit Emergency Visit: Yes ED Registration Date: 05/27/18 Care time: The patient presented to the Emergency Department on the above date and was hospitalized for further evaluation of their emergent condition. - New Patient This patient is new to me today: No - Critical Care Critical Care patient: No
[2018-06-01 07:24] LABS: INR 1.62 (0.83-1.09); PROTHROMBIN TIME (PATIENT) 19.2 SEC (9.7-13.0)
[2018-06-01] MEDS ORDERED: PT OWN MED DRAWER 7, Y5N ONE (09:04)
[2018-06-01] MEDS: VITAMIN B COMPLEX W/C COMBO TABLET (FP) PO SCH (09:25)
[2018-06-01] MEDS: RANITIDINE HCL 150 MG TABLET (FP) PO SCH (09:25)
[2018-06-01] MEDS: ENOXAPARIN NA (PORCINE) 120 MG/0.8 ML DISP.SYRIN SQ SCH (09:25)
[2018-06-01] MEDS: FOLIC ACID 1 MG TABLET (FP) PO SCH (09:25)
[2018-06-01] MEDS: LACTOBACILLUS ACIDOPHILUS 1 TABLET PO SCH (09:25)
[2018-06-01 10:23] VITALS: BP 113/87; PULSE 82; TEMP 98.1
--- NOTE | 2018-06-01 11:33 | DS ---
Physical Exam: SUBJECTIVE: Patient seen and examined at bedside. No acute events overnight. OBJECTIVE: Vital Signs Period Temp Pulse Resp BP Sys/Chau Pulse Ox Last 24 Hr 98.1 F-99.2 F 82-95 16-18 113-121/53-87 97-100 PHYSICAL EXAM GENERAL: AOX3 NAD HEAD: AT/NC. ONLAN. EOMI. Dry mucus membranes. NECK: Normal ROM, supple, no LAD/JVD. LUNGS: CTA B/L. No wheezes noted. Symmetric chest rise. HEART: RRR, normal S1 and S2 without murmur, rub or gallop. ABDOMEN: Soft, NT/ND. +BS in all 4Q's. MUSCULOSKELETAL: Normal range of motion at all joints. No bony deformities or tenderness. UPPER EXTREMITIES: 2+ pulses, warm, well-perfused. No cyanosis. No clubbing. No peripheral edema. 5/5 muscle strength b/l. LOWER EXTREMITIES: 2+ pulses, warm, well-perfused. No calf tenderness. No peripheral edema. 4/5 R hip flexion. 5/5 muscle strength knee extension/flexion , plantarflexion/dorsiflexion. NEUROLOGICAL: Cranial nerves II-XII intact. Normal speech. Diminished sensation in lower extremities b/l up to hips, as well as hands b/l up to wrists. PSYCHIATRIC: Cooperative. Good eye contact. Appropriate mood and affect. SKIN: Warm, dry, normal turgor, no rashes or lesions noted, normal capillary refill. 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 Pt was evaluated by neuro and was subsequently treated with IVIG. Blood work showed sub-therapeutic INR and as a result, pt was given higher dose of Coumadin and Lovenox for coverage. After 5 day treatment of IVIG was completed, pt symptoms had improved. Pt was subsequently discharged with recommendation to continue taking higher dose of Coumadin in addition to Lovenox with instructions to f/u w/ PCP to check INR levels. Additionally, pt was given recommendation to follow up with neuro outpatient as well as allergenist for further evaluation of neurological condition. Date of Discharge: 06/01/18 Minutes to complete discharge: 40 Discharge Summary Reason For Visit: NUMBNESS AND TINGLING SENSATION OF SKIN Current Active Problems Sensory ganglionopathy (Acute) Abnormal gait (Chronic) Inflammatory neuropathy (Chronic) Progressive neurological disorder (Chronic) Condition: Improved - Instructions Diet, Activity, Other Instructions: You were seen in the hospital for complaints of sensory neuropathy. In the hospital, you were evaluated by the neurologist and found to have sensory ganglionopathy affected your ability to walk. You were treated with a five day course of IV antibodies for your condition. Your symptoms improved throughout your hospital stay. You are being discharged home. MEDICAL RECOMMENDATIONS Please take one dose of Coumadin 10 mg tonight. You will need to have your INR checked daily. Additionally, please inject Lovenox 120 mg twice a day until your INR is therapeutic. Please get in touch with Dr. Brown on a daily basis to have your Coumadin dosage adjusted appropriately in order to achieve therapeutic INR levels. Please take all of your home medications as directed. CONSULT RECOMMENDATIONS Please follow up with your primary care physician, Dr. Brown, within 1 week. Please follow up with your neurologist, Dr. Abbott, within 1 week for outpatient follow up of your neurological condition. Please see an allergenist for enviromental testing, Dr. Itz Gonzales # If you experience worsening gait abnormalities, shortness of breath, difficulty breathing, worsening chest pain, persistent fever/chills, please proceed to your nearest emergency room immediately. Referrals: Kael Abbott DO [Staff Physician] - 1 Week Jcarlos Brown MD [Primary Care Provider] - 06/02/18 Disposition: HOME - Home Medications Comprehensive Discharge Medication List: Ambulatory Orders Vitamin B Complex 1 each PO DAILY 01/13/14 Enoxaparin [Lovenox -] 120 mg SQ BID #14 disp.syrin 06/01/18 This patient is new to me today: No Emergency Visit: Yes ED Registration Date: 05/27/18 Care time: The patient presented to the Emergency Department on the above date and was hospitalized for further evaluation of their emergent condition. Critical Care patient: No - Discharge Referral Referred to [facility] No Physician Referral: Jcarlos Brown MD (Int Med)
== END 2018-06-01 13:12 | disposition home or self-care (01) | DRG 48 ==
LOC: JER 16:45 → JERBED 20:51 → J7W 05-28 12:14
PROVIDERS: ADMIT Internal Medicine; ATTEND Internal Medicine
PROC: 30233S1 Transfusion of Nonautologous Globulin into Peripheral Vein, Percutaneous Approach (ICD-10-PCS; principal; 2018-05-28)
DX: G61.9 Inflammatory polyneuropathy, unspecified (principal); D68.61 Antiphospholipid syndrome; M32.9 Systemic lupus erythematosus, unspecified; R26.9 Unspecified abnormalities of gait and mobility; I45.10 Unspecified right bundle-branch block; E66.9 Obesity, unspecified; Z68.34 Body mass index [BMI] 34.0-34.9, adult; Z86.711 Personal history of pulmonary embolism; Z79.01 Long term (current) use of anticoagulants; I73.00 Raynaud's syndrome without gangrene; I10 Essential (primary) hypertension; G54.9 Nerve root and plexus disorder, unspecified
CPT/HCPCS: 36415; 71045-TC-FY; 80048; 80053; 80061; 82607; 82784; 83036; 83721; 83735; 84100; 84439; 84443; 85025; 85027; 85610; 85651; 85730; 86038; 86431; 93005; 93010; 97162-GP; 99284-25; J1561; J7030